=== PATIENT | male | born 1965 | race Caucasian/White ===

== ENCOUNTER 2016-11-18 08:49 | Emergency (ER) | payer OTHER ==
[2016-11-18 09:00] VITALS: BP 121/82
--- NOTE | 2016-11-18 10:30 | UC ---
I, Oh,Babita, scribed for Joseph Smith MD on 11/18/16 at 0935 . Upper Extremity HPI - HPI Summary HPI Summary: This 51 y/o male presents to [facility] for acute on chronic numbness/pain of RUE digit #2,3,4 radiating to RUE shoulder since today. Pt states that he has hadintermittent episodes of numbness since 3-4 months ago. Right hand dominant. Pt reports that he feel scared of possibly dropping things when using his right hand. Pain is worse at night. Negative slurred speech. PMHx does includes T12- L1 compression fx and bilat shoulder injury s/p surgery a year ago, but does not include chronic neck pain or back surgery. Pt is currently on celebrex, pantoprazole, ability in morning and daily APAP at night for pain control. Primary care involves Dr. Jordan. - History of Current Complaint Chief Complaint: UCUpperExtremity Stated Complaint: ARM NUMB Time Seen by Provider: 11/18/16 09:10 Hx Obtained From: Patient, Medical Records Onset/Duration: Lasting Weeks, Still Present Pain Intensity: 3 Pain Scale Used: 0-10 Numeric Location Of Pain: Is Discrete @ - RUE hand Aggravating Factor(s): Nothing Alleviating Factor(s): Nothing Associated Signs And Symptoms: Positive: Numbness/Tingling - RUE fingers radiating to RUE shoulder - Allergies/Home Medications Allergies/Adverse Reactions: Allergies Allergy/AdvReac Type Severity Reaction Status Date / Time Penicillins Allergy Severe Anaphylatic Verified 11/18/16 08:52 Shock EGGS Allergy STOMACH Uncoded 11/18/16 08:52 ACHE Home Medications: Home Medications Mometasone/Formoter 100/5 MDI* [Dulera 100/5 MDI*] 2 puff INH BID 11/18/16 [ History Confirmed 11/18/16] PMH/Surg Hx/FS Hx/Imm Hx - Additional Past Medical History Additional PMH: BIlat shoulder injury s/p surgery a year ago. Compression fx at T12-L1 - Surgical History Surgical History: Yes Surgery Procedure, Year, and Place: 07/2014 left shoulder; 12/2013 rt shoulder; spleen removed in 1977; - Family History Known Family History: Positive: Respiratory Disease - COPD - Social History Alcohol Use: None Alcohol Amount: last 2009 Substance Use Type: None Smoking Status (MU): Former Smoker Type: Cigarettes Amount Used/How Often: 1 1/2 PPD X 20 YEARS Length of Time of Smoking/Using Tobacco: 25 YEARS Have You Smoked in the Last Year: No When Did the Patient Quit Smoking/Using Tobacco: 2012 - Immunization History Most Recent Influenza Vaccination: NONE Most Recent Tetanus Shot: UNKNOWN Most Recent Pneumonia Vaccination: NONE Review of Systems Constitutional: Negative Skin: Negative Eyes: Negative ENT: Negative Respiratory: Negative Cardiovascular: Negative Gastrointestinal: Negative Genitourinary: Negative Motor: Negative Neurovascular: Negative Musculoskeletal: Other: - RUE pain Neurological: Numbness - RUE numbness from digit #2,3,4 to RUE shoulder Psychological: Negative All Other Systems Reviewed And Are Negative: Yes Physical Exam Triage Information Reviewed: Yes Vital Signs: Initial Vital Signs Temp 97.8 F 11/18/16 08:55 Pulse 101 11/18/16 08:55 Resp 16 11/18/16 08:55 BP 121/82 11/18/16 08:55 Pulse Ox 97 11/18/16 08:55 Vital Signs Reviewed: Yes - Additional Comments The patient is well-nourished in no acute distress and in no acute pain. The skin is warm and dry and skin color reflects adequate perfusion. HEENT: The head is normocephalic and atraumatic. The pupils are equal and reactive. The conjunctivae are clear and without drainage. Nares are patent and without drainage. Mouth reveals moist mucous membranes and the throat is without erythema and exudate. The external ears are intact. The ear canals are patent and without drainage. The tympanic membranes are intact. Neck is supple with full range of motion and non-tender. There are no carotid bruits. There is no neck vein distension. Respiratory: Chest is non-tender. Lungs are clear to auscultation and breath sounds are symmetrical and equal. Cardiovascular: Hear is regular rate and rhythm. There is no murmur or rub auscultated. There is no peripheral edema and pulses are symmetrical and equal. Intact RUE radial pulse. Abdomen: The abdomen is soft and non-tender. There are normal bowel sounds heard in all four quadrants and there is no organomegaly palpated. Musculoskeletal: There is no back pain noted. Extremities are non-tender with full range of motion. There is good capillary refill at RUE digits. There is no peripheral edema or calf tenderness elicited. Neurological: Patient is alert and oriented to person, place and time. The patient has symmetrical motor strength in all four extremities. Cranial nerves II-XIII are grossly intact. Negative facial droops. Psychiatric: The patient has an appropriate affect and does not exhibit any anxiety or depression. Upper Extremity Course/Dx - Course Course Of Treatment: Home med list reviewed and confirmed. Vital signs is reviewed and noted with BP of 121/82. THis 51 y/o male presents with chronic RUE hand numbness since 3-4 months ago. Pt denies any other numbness or any neurological deficits. Possibility of Carpel tunnel syndrome and nerve entrapment is discussed with pt, and he is recommended for outpatient MRI. Pt was referred to Dr. Medrano instead of Dr. Sapp, who is orthopaedist ordnance truck installation supervisor because he doesn't do hands. - Differential Dx/Diagnosis Differential Diagnosis/HQI/PQRI: Other - carpal tunnel, cervical neuropathy, median nerve entrapment Provider Diagnoses: 1) median nerve entrapment 3) Carpal Tunnel Syndrome 2) right hand numbness Discharge - Discharge Plan Condition: Stable Disposition: HOME Prescriptions: Gabapentin CAP(*) [Neurontin 300 CAP(*)] 300 mg PO TID #90 cap Patient Education Materials: Paresthesia (ED), Peripheral Neuropathy (ED) Referrals: Alycia Medrano MD [Medical Doctor] - 2 Days Leslie Jordan MD [Primary Care Provider] - 2 Days Additional Instructions: Outpatient MRI is recommended. The documentation as recorded by the Richard gamino Soohyun accurately reflects the service I personally performed and the decisions made by , Joseph Smith MD.
== END 2016-11-18 09:55 | disposition home or self-care (01) ==
LOC: UCEAST 08:49
DX: G56.01 Carpal tunnel syndrome, right upper limb (principal); G56.00 Carpal tunnel syndrome, unspecified upper limb; R20.0 Anesthesia of skin; Z87.891 Personal history of nicotine dependence; Z88.0 Allergy status to penicillin
CPT/HCPCS: 99213; G0463

== ENCOUNTER 2017-01-19 14:37 | Emergency (ER) | payer OTHER ==
[2017-01-19 14:58] VITALS: BP 134/92
--- NOTE | 2017-01-19 15:37 | RAD ---
INDICATION: Right wrist foreign body COMPARISON: None TECHNIQUE: AP, lateral, and oblique views were obtained. FINDINGS: There is no acute bony change. There is a metallic density foreign body 4 mm below the skin surface along the radial aspect of wrist at the level of the proximal carpal row. This is proximal to the entrance wound is marked by the cogeneration technician. IMPRESSION: FOREIGN BODY
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
== END 2017-01-19 16:16 | disposition home or self-care (01) ==
LOC: UCEAST 14:37
DX: S60.851A Superficial foreign body of right wrist, initial encounter (principal); L03.113 Cellulitis of right upper limb; X58.XXXA Exposure to other specified factors, initial encounter; Y92.9 Unspecified place or not applicable; Z87.891 Personal history of nicotine dependence; F32.9 Major depressive disorder, single episode, unspecified; J44.9 Chronic obstructive pulmonary disease, unspecified; Z88.0 Allergy status to penicillin
CPT/HCPCS: 99212; G0463

== ENCOUNTER 2017-01-24 08:23 | Day surgery (SDC) | payer OTHER ==
[~2017-01-24 08:23] MED LIST: Buffered Lidocaine 0.9% SYRIN* 5 ML/SYR SYRINGE INTRADERM ONE
[2017-01-24] MEDS ORDERED: Clindamycin 900 MG IVPREMIX(* 900 MG/50 ML SDV IV ONE (08:35)
[2017-01-24] MEDS ORDERED: Midazolam* 1 MG/ML 2 ML VIAL (2 MG) ONE (09:27)
[2017-01-24] MEDS ORDERED: fentaNYL* 50 MCG/ML 2 ML VIAL (100 MCG VIAL) ONE (09:27)
[2017-01-24] MEDS ORDERED: Lidocaine 1% INJ* 10 MG/ML 30 ML SDV ONE (09:48)
[2017-01-24] MEDS ORDERED: Lidocaine 2% PF * 5 ML VIAL ONE (10:04)
[2017-01-24] MEDS ORDERED: Propofol* 10 MG/ML 20 ML BTL IV PUSH ONE (10:04)
[2017-01-24] MEDS ORDERED: PROCHLORPERAZINE INJ 5 MG/ML 2 ML VIAL IV PRN (10:20)
[2017-01-24] MEDS ORDERED: Ondansetron INJ* 2 MG/ML VIAL IV PRN (10:20)
[2017-01-24] MEDS ORDERED: Acetaminophen TAB* 325 MG PO PRN (10:20)
[2017-01-24 11:04] VITALS: BP 135/100
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
== END 2017-01-24 11:13 | disposition home or self-care (01) ==
LOC: OREAST 08:23
PROVIDERS: ATTEND Orthopaedic Surgery
DX: S60.851A Superficial foreign body of right wrist, initial encounter (principal); W45.8XXA Other foreign body or object entering through skin, initial encounter; Y92.9 Unspecified place or not applicable; G47.33 Obstructive sleep apnea (adult) (pediatric); K21.9 Gastro-esophageal reflux disease without esophagitis; J45.909 Unspecified asthma, uncomplicated; E66.9 Obesity, unspecified; Z68.32 Body mass index [BMI] 32.0-32.9, adult; Z88.0 Allergy status to penicillin; Z87.891 Personal history of nicotine dependence
CPT/HCPCS: J2001; J2250; J2704; J3010

== ENCOUNTER 2017-09-18 07:50 | Emergency (ER) | payer OTHER ==
[2017-09-18 07:59] VITALS: BP 152/101
--- NOTE | 2017-09-18 12:15 | UC ---
Abraham Alston Angela, scribed for Dillan Wilkes MD on 09/18/17 at 0814 . UC General HPI - HPI Summary HPI Summary: This pt is a 52 y/o male presenting to [facility] c/o chronic pain for the past 2 days. Pt notes his pain is diffuse especially on his bilateral shoulders, back, and wrist. Pt states he has chronic pain secondary to arthritis. He usually takes Gabapentin and Celebrex for the pain but reports his pain has increased over the past 2 to 3 days. Denies chest pain, SOB, fever, chills. Pt describes his pain is worse than his usual arthritis pain. - History of Current Complaint Chief Complaint: UCGeneralIllness Stated Complaint: SHOULDER,BACK,WRIST PAIN Hx Obtained From: Patient Onset/Duration: Lasting Days, Still Present Timing: Constant Current Severity: Moderate Pain Intensity: 7 Pain Location at: bilateral shoulders, back, and wrist Aggravating: nothing Alleviating: nothing Associated Signs & Symptoms: Negative: Chest Pain, Fever, SOB - Allergy/Home Medications Allergies/Adverse Reactions: Allergies Allergy/AdvReac Type Severity Reaction Status Date / Time Penicillins Allergy anaph Verified 09/18/17 07:52 PMH/Surg Hx/FS Hx/Imm Hx - Additional Past Medical History Additional PMH: PMHx: arthritis Respiratory History: Asthma GI/ History: Gastroesophageal Reflux - Surgical History Surgical History: Yes Surgery Procedure, Year, and Place: 07/2014 left shoulder x2 ; 12/2013 rt shoulder ; spleen removed in 1977; back fx x 2 ,cx degen changes - Family History Known Family History: Positive: Respiratory Disease - COPD - Social History Alcohol Use: None Alcohol Amount: last 2009 Substance Use Type: None Smoking Status (MU): Former Smoker Type: Cigarettes Amount Used/How Often: 1 1/2 PPD X 20 YEARS Length of Time of Smoking/Using Tobacco: 25 YEARS Have You Smoked in the Last Year: No When Did the Patient Quit Smoking/Using Tobacco: 2012 - Immunization History Most Recent Influenza Vaccination: NONE Most Recent Tetanus Shot: less then 5 yrs Most Recent Pneumonia Vaccination: NONE Review of Systems Constitutional: Negative Skin: Negative Eyes: Negative ENT: Negative Respiratory: Negative Cardiovascular: Negative Gastrointestinal: Negative Genitourinary: Negative Motor: Negative Neurovascular: Negative Musculoskeletal: Arthralgia, Other: - bilateral shoulder pain, back pain, wrist pain Neurological: Negative Psychological: Negative All Other Systems Reviewed And Are Negative: Yes Physical Exam - Summary Physical Exam Summary: VITAL SIGNS: Reviewed. GENERAL: Patient is a well-developed and nourished male who is lying comfortable in the stretcher. Patient is not in any acute respiratory distress. HEAD AND FACE: Normocephalic EYES: PERRLA, EOMI x 2. EARS: Hearing grossly intact. MOUTH: Oropharynx within normal limits. NECK: Supple, trachea is midline, no adenopathy, no JVD, no carotid bruit. CHEST: Symmetric, no tenderness at palpation LUNGS: Clear to auscultation bilaterally. No wheezing or crackles. CVS: Regular rate and rhythm, S1 and S2 present, no murmurs or gallops appreciated. ABDOMEN: Soft, non-tender. Bowel sounds are normal. No abdominal abnormal pulsations. EXTREMITIES: no edema, no cyanosis or clubbing. Decreased ROM of right wrist secondary to pain, no swelling, no hematoma. He is neurovascular intact. Decreased ROM of both shoulders secondary to pain. No hematoma. No deformity. NEURO: Alert and oriented x 3. No acute neurological deficits. Speech is normal and follows commands. SKIN: Dry and warm Triage Information Reviewed: Yes Vital Signs: Initial Vital Signs Temp 98.2 F 09/18/17 07:53 Pulse 94 09/18/17 07:53 Resp 16 09/18/17 07:53 BP 152/101 09/18/17 07:53 Pulse Ox 100 09/18/17 07:53 Vital Signs Reviewed: Yes Course/Dx - Course Course Of Treatment: This pt is a 52 y/o male presenting to [facility] c/o chronic pain for the past 2 days. Pt notes his pain is localized on bilateral shoulders , back, and wrist. Pt states he has chronic pain secondary to arthritis. He usually takes Gabapentin and Celebrex for the pain but reports his pain has increased over the past 2 to 3 days. Denies chest pain, SOB, fever, chills. Pt describes his pain worse than his usual arthritis pain. Pt will be discharged to home with follow up from PCP. He will be given prescriptions for Flexeril and [place]. Pt was instructed to return to the urgent care or go to ER immediately if any of the symptoms return or worsens. Plan of care was discussed with the patient and pt understands and agrees. All questions were answered to patient satisfaction. There were no further complaints or concerns. Pt is hemodynamically stable, alert and oriented x3. The patient was found to have increased blood pressure in UC. The patient will follow up with PCP for better control of BP. - Differential Dx - Multi-Symptom Provider Diagnoses: Arthralgia Discharge - Sign-Out/Discharge Documenting (check all that apply): Discharge - discharge to home - Discharge Plan Condition: Stable Disposition: HOME Prescriptions: Cyclobenzaprine TAB* [Flexeril 10 MG TAB*] 10 mg PO TID PRN #12 tab PRN Reason: Pain HYDROcodone/ACETAMIN 5-325 MG* [[place] 5-325 TAB*] 1 tab PO Q6H PRN #12 tab MDD 4 PRN Reason: Pain Patient Education Materials: Arthralgia (ED), Shoulder Pain (ED) Referrals: Leslie Jordan MD [Primary Care Provider] - Additional Instructions: FOLLOW UP WITH YOUR PRIMARY CARE PROVIDER WITHIN ONE WEEK FOR HIGH BLOOD PRESSURE NOTED TODAY. RETURN TO URGENT CARE OR THE ED FOR ANY WORSENING OR NEW SYMPTOMS. The documentation as recorded by the Abraham gamino Angela accurately reflects the service I personally performed and the decisions made by , Dillan Wilkes MD.
== END 2017-09-18 08:25 | disposition home or self-care (01) ==
LOC: UCEAST 07:50
DX: M25.512 Pain in left shoulder (principal); M25.511 Pain in right shoulder; M25.531 Pain in right wrist; M54.9 Dorsalgia, unspecified; J45.909 Unspecified asthma, uncomplicated; K21.9 Gastro-esophageal reflux disease without esophagitis; Z88.0 Allergy status to penicillin; Z87.891 Personal history of nicotine dependence
CPT/HCPCS: 99212; G0463

== ENCOUNTER 2017-09-27 07:25 | Emergency (ER) | payer OTHER ==
[2017-09-27 07:39] VITALS: BP 94/69
--- NOTE | 2017-09-27 08:21 | UC ---
Back Pain HPI - HPI Summary HPI Summary: 52 year old male with back pain and wrist pain. pain /10. to see ortho 5/2. missed PCP appt and referred to Ortho pain worsened since running out of bruning. - History of Current Complaint Chief Complaint: UCUpperExtremity Stated Complaint: PAIN IN SHOULDERS AND WRIST Time Seen by Provider: 09/27/17 07:42 Hx Obtained From: Patient Onset/Duration: Gradual Onset Timing: Constant Severity Initially: Moderate Severity Currently: Severe Pain Intensity: 8 Back Pain: Is Diffuse Aggravating Factor(s): Movement Alleviating Factor(s): Nothing Related History: Similar Episode Dx As, Previous Back Injury - Allergies/Home Medications Allergies/Adverse Reactions: Allergies Allergy/AdvReac Type Severity Reaction Status Date / Time Penicillins Allergy anaph Verified 09/27/17 07:39 Home Medications: Home Medications ARIPiprazole [Abilify] 10 mg PO DAILY 09/27/17 [History Confirmed 09/27/17] Acetaminophen [APAP] 650 mg PO Q6H PRN 09/27/17 [History Confirmed 09/27/17] PMH/Surg Hx/FS Hx/Imm Hx Previously Healthy: Yes Psychological History: Anxiety, Depression - Surgical History Surgical History: Yes Surgery Procedure, Year, and Place: 07/2014 left shoulder x2 ; 12/2013 rt shoulder ; spleen removed in 1977; back fx x 2 ,cx degen changes. R wrist surgery - Family History Known Family History: Positive: None, Respiratory Disease - COPD - Social History Alcohol Use: None Alcohol Amount: last 2009 Substance Use Type: None Smoking Status (MU): Former Smoker Type: Cigarettes Amount Used/How Often: 1 1/2 PPD X 20 YEARS Length of Time of Smoking/Using Tobacco: 25 YEARS Have You Smoked in the Last Year: No When Did the Patient Quit Smoking/Using Tobacco: 2012 - Immunization History Most Recent Influenza Vaccination: NONE Most Recent Tetanus Shot: less then 5 yrs Most Recent Pneumonia Vaccination: NONE Review of Systems Musculoskeletal: Arthralgia, Decreased ROM Is Patient Immunocompromised?: No All Other Systems Reviewed And Are Negative: Yes Physical Exam Triage Information Reviewed: Yes Appearance: Well-Appearing, Pain Distress - mild Vital Signs: Initial Vital Signs Temp 98.4 F 09/27/17 07:34 Pulse 90 09/27/17 07:34 Resp 16 09/27/17 07:34 BP 94/69 09/27/17 07:34 Pulse Ox 98 09/27/17 07:34 Vital Signs Reviewed: Yes Eye Exam: Normal ENT Exam: Normal Neck exam: Normal Respiratory Exam: Normal Cardiovascular Exam: Normal Musculoskeletal: Positive: Strength Intact, ROM Limited @ - pain with movement right wrist and tenderness to palpation scapulothoracic area b/l . no step off. strength u/e 5/5 . wrist otherwise WNL. cap refill < 3 sec peripheral pulses brisk Neurological Exam: Normal Psychological Exam: Normal Skin Exam: Normal Back Pain Course/Dx - Course Course Of Treatment: bridge to ortho . i stop checked - Differential Dx/Diagnosis Differential Diagnosis/HQI/PQRI: Strain, Sprain Provider Diagnoses: back pain and right wrist pain Discharge - Sign-Out/Discharge Documenting (check all that apply): Discharge/Admit/Transfer - Discharge Plan Condition: Good Disposition: HOME Prescriptions: HYDROcodone/ACETAMIN 5-325 MG* [[place] 5-325 TAB*] 1 tab PO Q6H PRN #12 tab MDD 4 PRN Reason: Pain Patient Education Materials: Back Pain (ED) Referrals: Leslie Jordan MD [Primary Care Provider] - 2 Days Additional Instructions: Please keep your appointment with you orthopedic doctor next week. - Billing Disposition and Condition Condition: GOOD Disposition: HOME
== END 2017-09-27 08:15 | disposition home or self-care (01) ==
LOC: UCEAST 07:25
DX: M54.9 Dorsalgia, unspecified (principal); M25.531 Pain in right wrist; F41.9 Anxiety disorder, unspecified; F32.9 Major depressive disorder, single episode, unspecified; Z88.0 Allergy status to penicillin; Z87.891 Personal history of nicotine dependence
CPT/HCPCS: 99212; G0463

== ENCOUNTER 2018-01-29 15:16 | Emergency (ER) | payer OTHER ==
[2018-01-29 15:26] VITALS: BP 128/87
--- NOTE | 2018-01-29 15:34 | UC ---
Throat Pain/Nasal Rogelio HPI - HPI Summary HPI Summary: sore throat for a couple of days , also has body aches and subjective fever, patient feels like this began a couple of days ago when he choked on a fidel potato chip - History of Current Complaint Chief Complaint: UCRespiratory Stated Complaint: THROAT PAIN Time Seen by Provider: 01/29/18 15:31 Hx Obtained From: Patient Onset/Duration: Sudden Onset, Lasting Days - 3, Still Present Pain Intensity: 7 Pain Scale Used: 0-10 Numeric Cough: None Associated Signs & Symptoms: Positive: Negative - Allergies/Home Medications Allergies/Adverse Reactions: Allergies Allergy/AdvReac Type Severity Reaction Status Date / Time Penicillins Allergy anaph Verified 01/29/18 15:25 PMH/Surg Hx/FS Hx/Imm Hx Previously Healthy: No - chronic pain GI/ History: Gastroesophageal Reflux - Surgical History Surgical History: Yes Surgery Procedure, Year, and Place: 07/2014 left shoulder x2 ; 12/2013 rt shoulder ; spleen removed in 1977; back fx x 2 ,cx degen changes. R wrist surgery - Family History Known Family History: Positive: None, Respiratory Disease - COPD - Social History Occupation: Unemployed Lives: Alone Alcohol Use: None Alcohol Amount: last 2009 Substance Use Type: None Smoking Status (MU): Former Smoker Type: Cigarettes Amount Used/How Often: 1 1/2 PPD X 20 YEARS Length of Time of Smoking/Using Tobacco: 25 YEARS Have You Smoked in the Last Year: No When Did the Patient Quit Smoking/Using Tobacco: 2012 - Immunization History Most Recent Influenza Vaccination: NONE Most Recent Tetanus Shot: less then 5 yrs Most Recent Pneumonia Vaccination: NONE Review of Systems Constitutional: Chills Skin: Negative Eyes: Negative ENT: Sore Throat Respiratory: Cough Cardiovascular: Negative Gastrointestinal: Negative Genitourinary: Negative Motor: Negative Neurovascular: Negative Musculoskeletal: Negative Neurological: Negative Psychological: Negative Is Patient Immunocompromised?: No All Other Systems Reviewed And Are Negative: Yes Physical Exam Triage Information Reviewed: Yes Appearance: Well-Nourished, Ill-Appearing - appears chroniccly older than stated age, Pain Distress - mild Vital Signs: Initial Vital Signs Temp 99.5 F 01/29/18 15:18 Pulse 87 01/29/18 15:18 Resp 22 01/29/18 15:18 BP 128/87 01/29/18 15:18 Pulse Ox 96 01/29/18 15:18 Vital Signs Reviewed: Yes Eye Exam: Normal Eyes: Positive: Conjunctiva Clear ENT Exam: Normal ENT: Positive: Normal ENT inspection, Hearing grossly normal, Pharynx normal, Uvula midline. Negative: Nasal congestion, Tonsillar swelling, Tonsillar exudate, Trismus, Muffled voice, Hoarse voice, Dental tenderness, Sinus tenderness Neck exam: Normal Neck: Positive: Supple, Nontender Respiratory Exam: Normal Respiratory: Positive: Chest non-tender, Lungs clear, Normal breath sounds, No respiratory distress, No accessory muscle use Cardiovascular Exam: Normal Cardiovascular: Positive: RRR, No Murmur, Pulses Normal, Brisk Capillary Refill Musculoskeletal Exam: Normal Musculoskeletal: Positive: Strength Intact, ROM Intact, No Edema Neurological Exam: Normal Neurological: Positive: Alert, Muscle Tone Normal Psychological Exam: Normal Skin Exam: Normal Diagnostics - Radiology No standard instances Xray Interpretation: No Acute Changes - Patient Name: RENE QUIÑONES Medical Record#: [id number] Ordering Physician: Yanet Ling [employer] Acct.#: [id number] : 1965 Age: 52 Sex: M Location: [facility] Exam Date: 01/29/18 1608 ADM Status: REG ER Order Information : CHEST PA & LAT 2 VWS Accession Number: [id number] CPT: 83392 INDICATION: Chest pain COMPARISON: September 24, 2015 TECHNIQUE: PA and lateral dual-energy views were obtained. FINDINGS: Bones/Soft Tissues: There are no acute bony findings. There is left humeral arthroplasty Cardiomediastinal: The cardiomediastinal silhouette is normal. Lungs: There are no focal infiltrates. There are chronic interstitial changes. There is minor lingular scarring or atelectasis. Pleura: There are no pleural effusions. Other: None IMPRESSION: NO ACTIVE DISEASE. <Electronically signed by Josse Pearl MD in OV> 7 Dictated By: Josse Pearl MD Dictated Date/Time: 01/29/18 162 Transcribed Date/Time: 01/29/18 1625 Copy to: CC:Yanet Ling [employer]; Leslie Romero MD; Josse Cueva MD Imaging - [facility] Imaging - [facility] Imaging - [facility] [id number] [place] [id number] [place] [id number] ph ([phone] ph ([phone]) ph ([phone]) This report is only to be considered final once signed by the Provider(s) as displayed in the "< Electronically Signed by >" field (s). Absence of a signature indicates the report is in a draft status and still needs to be finalized. In the event this document was created by someone other than the signing Provider, the individual initiating the document will be listed in the "Entered by:" or "Dictated by:" [email or web address]. 1 of 1 Radiology Interpretation Completed By: ED Physician, Radiologist - EKG Cardiac Rate: Tachycardia Cardiac Rhythm: Sinus: Normal Ectopy: None ST Segment: Normal EKG Comparison: No Significant Change Throat Pain/Nasal Course/Dx - Course Assessment/Plan: will transfer patient to [facility] with SOB/Chills concider sepsis--patient agreeable to go by ambulance as he feels he is to ill and fatigued to drive - Differential Dx/Diagnosis Provider Diagnoses: fatigue, SOB Discharge - Sign-Out/Discharge Documenting (check all that apply): Patient Departure All imaging exams completed and their final reports reviewed: Yes - Discharge Plan Condition: Fair Disposition: TRANS HIGHER LVL OF CARE FAC Referrals: Leslie Jordan MD [Primary Care Provider] - - Billing Disposition and Condition Condition: FAIR Disposition: Trans Higher Lvl of Care Fac
[2018-01-29] MEDS ORDERED: Al Hydrox/Mg Hydrox/Simet LIQ* 30 ML UDC PO ONE (15:49)
[2018-01-29] MEDS ORDERED: Lidocaine 2% VISCOUS* 15 ML UDC PO ONE (15:49)
--- NOTE | 2018-01-29 16:30 | RAD ---
INDICATION: Chest pain COMPARISON: September 24, 2015 TECHNIQUE: PA and lateral dual-energy views were obtained. FINDINGS: Bones/Soft Tissues: There are no acute bony findings. There is left humeral arthroplasty Cardiomediastinal: The cardiomediastinal silhouette is normal. Lungs: There are no focal infiltrates. There are chronic interstitial changes. There is minor lingular scarring or atelectasis. Pleura: There are no pleural effusions. Other: None IMPRESSION: NO ACTIVE DISEASE.
== END 2018-01-29 17:10 | disposition short-term general hospital (02) ==
LOC: UCEAST 15:16
DX: R06.02 Shortness of breath (principal); R53.83 Other fatigue; J02.9 Acute pharyngitis, unspecified; R50.9 Fever, unspecified; R52 Pain, unspecified; Z87.891 Personal history of nicotine dependence; Z88.0 Allergy status to penicillin
CPT/HCPCS: 71046; 87651; 93005; 99213; A9270-GY; G0463

== ENCOUNTER 2018-01-29 17:28 | Observation (INO) | payer OTHER ==
[2018-01-29] MEDS ORDERED: NS 0.9% 1000 ML*IV.FLUID IV ONE (17:50)
[2018-01-29] MEDS ORDERED: Albuterol/Ipratropium NEB.SOL* Albuterol 2.5 MG/Ipratropium 0.5 MG 3 ML INH ONE (17:51)
[2018-01-29] MEDS ORDERED: Ciprofloxacin 400MG IVPREMIX(* 400 MG/200 ML BAG IVPB ONE (18:11)
[2018-01-29] MEDS ORDERED: Vancomycin(*) 1,500 MG in NS 0.9% 250 ML* 250 ML IVPB ONE (18:11)
[2018-01-29] MEDS ORDERED: metroNIDAZOLE IV 500 MG/100ML* 500 MG/100 ML BAG IVPB ONE (18:11)
[2018-01-29 18:37] LABS: ABS Basophils 0.1 10^3/ul (0-0.2); ABS Eosinophils 0.1 10^3/ul (0-0.6); ABS Lymphocytes 1.4 10^3/ul (1.0-4.8); ABS Monocytes 1.5 10^3/ul (0-0.8); ABS Neutrophils 12.5 10^3/ul (1.5-7.7); ABS Nucleated RBC 0 10^3/ul; Eosinophil % 0.6 % (0-6); Hematocrit 45 % (42-52); Hemoglobin 15.3 g/dl (14.0-18.0); Lymphocyte % 9.2 % (25-47); Mean Corpuscular HGB Conc 34 g/dl (31-36); Mean Corpuscular Hemoglobin 29 pg (27-31); Mean Corpuscular Volume 86 fL (80-94); Nucleated Red Blood Cells % 0.1; Platelet Count 219 10^3/ul (150-450); Red Blood Count 5.27 10^6/ul (4.00-5.40); Red Cell Distribution Width 14 % (10.5-15); White Blood Count 15.6 10^3/ul (3.5-10.8)
--- NOTE | 2018-01-29 18:38 | ED ---
Respiratory - History of Current Complaint Chief Complaint: EDFever Stated Complaint: THROAT PAIN Time Seen by Provider: 01/29/18 17:37 Pain Intensity: 8 - Allergy/Home Medications Allergies/Adverse Reactions: Allergies Allergy/AdvReac Type Severity Reaction Status Date / Time Penicillins Allergy anaph Verified 01/29/18 18:34 PMH/Surg Hx/FS Hx/Imm Hx Endocrine/Hematology History: Reports: Hx Anemia - A CHILD, spleen removed 1977 Denies: Hx Diabetes, Hx Systemic Lupus Erythematosus, Hx Thyroid Disease Cardiovascular History: Denies: Hx Congestive Heart Failure, Hx Hypertension, Hx Pacemaker/ICD, Other Cardiovascular Problems/Disorders Respiratory History: Reports: Hx Asthma, Hx Sleep Apnea, Other Respiratory Problems/Disorders - DR FOUND SPOT ON LUNG 2 YRS AGO, unsure what Denies: Hx Chronic Obstructive Pulmonary Disease (COPD) GI History: Reports: Hx Gastroesophageal Reflux Disease, Hx Hiatal Hernia - STATES POSSIBLY Denies: Other GI Disorders History: Reports: Other Problems/Disorders - BLADDER INFECTION 10 YEARS AGO Denies: Hx Dialysis, Hx Renal Disease Musculoskeletal History: Reports: Hx Arthritis - back and shoulders, knees, wrists, Other Musculoskeletal History - RIGHT SHOULDER Denies: Hx Rheumatoid Arthritis Sensory History: Denies: Hx Contacts or Glasses, Hx Hearing Aid Opthamlomology History: Denies: Hx Contacts or Glasses Neurological History: Reports: Hx Nerve Disease - r/t carpal tunnel Psychiatric History: Reports: Hx Anxiety - on meds, Hx Depression - on meds Denies: Hx Panic Disorder - Cancer History Hx Chemotherapy: No - Surgical History Surgery Procedure, Year, and Place: 07/2014 left shoulder x2 ; 12/2013 rt shoulder ; spleen removed in 1977; back fx x 2 ,cx degen changes. R wrist surgery Hx Anesthesia Reactions: No - Immunization History Immunizations Up to Date: Yes Infectious Disease History: No Infectious Disease History: Denies: Hx Clostridium Difficile, Hx Hepatitis, Hx Human Immunodeficiency Virus (HIV), Hx of Known/Suspected MRSA, Hx Shingles, Hx Tuberculosis, Hx Known/ Suspected VRE, Hx Known/Suspected VRSA, History Other Infectious Disease, Traveled Outside the [place] in Last 30 Days - Family History Known Family History: Positive: None, Respiratory Disease - COPD - Social History Alcohol Use: None Alcohol Amount: last 2009 Substance Use Type: Reports: None Hx Tobacco Use: No Smoking Status (MU): Former Smoker Type: Cigarettes Amount Used/How Often: 1 1/2 PPD X 20 YEARS Length of Time of Smoking/Using Tobacco: 25 YEARS Have You Smoked in the Last Year: No Physical Exam Vital Signs On Initial Exam: Initial Vitals Temp Pulse Resp BP Pulse Ox 100.4 F 104 20 129/94 97 01/29/18 17:45 01/29/18 17:45 01/29/18 17:45 01/29/18 17:45 01/29/18 17:45 Diagnostics - Vital Signs Vital Signs Temp Pulse Resp BP Pulse Ox 01/29/18 18:11 98 01/29/18 17:45 100.4 F 104 20 129/94 97 - Laboratory Lab Results: Lab Results 01/29/18 Range/Units 18:25 WBC 15.6 H (3.5-10.8) 10^3/ul RBC 5.27 (4.00-5.40) 10^6/ul Hgb 15.3 (14.0-18.0) g/dl Hct 45 (42-52) % MCV 86 (80-94) fL MCH 29 (27-31) pg MCHC 34 (31-36) g/dl RDW 14 (10.5-15) % Plt Count 219 (150-450) 10^3/ul MPV 8.0 (7.4-10.4) um3 Neut % (Auto) 79.9 (38-83) % Lymph % (Auto) 9.2 L (25-47) % [place] % (Auto) 9.9 H (0-7) % Eos % (Auto) 0.6 (0-6) % Baso % (Auto) 0.4 (0-2) % Absolute Neuts (auto) 12.5 H (1.5-7.7) 10^3/ul Absolute Lymphs (auto) 1.4 (1.0-4.8) 10^3/ul Absolute Monos (auto) 1.5 H (0-0.8) 10^3/ul Absolute Eos (auto) 0.1 (0-0.6) 10^3/ul Absolute Basos (auto) 0.1 (0-0.2) 10^3/ul Absolute Nucleated RBC 0 10^3/ul Nucleated RBC % 0.1 Result Diagrams: 01/29/18 18:25 Lab Statement: Any lab studies that have been ordered have been reviewed, and results considered in the medical decision making process. Discharge - Discharge Plan Referrals: Leslie Jordan MD [Primary Care Provider] -
[2018-01-29] MEDS ORDERED: Acetaminophen TAB* 325 MG PO ONE (18:39)
--- NOTE | 2018-01-29 18:41 | ED ---
Complex/Multi-Sys Presentation - HPI Summary HPI Summary: Patient is a 52-year-old male who presents emergency department for sore throat , cough, shortness of breath and lower abdominal pain. He states he's had a productive cough over the last several days as well as a sore throat. He notes exacerbation of chronic low back pain as well as diarrhea and lower abdominal pain over the last several days. He admits to shortness of breath, denies chest pain. Also notes fever at home. Symptoms are moderate in severity. Movement makes symptoms worse. Nothing makes symptoms better. - History Of Current Complaint Chief Complaint: EDFever Time Seen by Provider: 01/29/18 17:37 Hx Obtained From: Patient - Allergies/Home Medications Allergies/Adverse Reactions: Allergies Allergy/AdvReac Type Severity Reaction Status Date / Time Penicillins Allergy anaph Verified 01/29/18 18:34 PMH/Surg Hx/FS Hx/Imm Hx Previously Healthy: Yes Endocrine/Hematology History: Reports: Hx Anemia - A CHILD, spleen removed 1977 Denies: Hx Diabetes, Hx Systemic Lupus Erythematosus, Hx Thyroid Disease Cardiovascular History: Denies: Hx Congestive Heart Failure, Hx Hypertension, Hx Pacemaker/ICD, Other Cardiovascular Problems/Disorders Respiratory History: Reports: Hx Asthma, Hx Sleep Apnea, Other Respiratory Problems/Disorders - FOUND SPOT ON LUNG 2 YRS AGO, unsure what Denies: Hx Chronic Obstructive Pulmonary Disease (COPD) GI History: Reports: Hx Gastroesophageal Reflux Disease, Hx Hiatal Hernia - STATES POSSIBLY Denies: Other GI Disorders History: Reports: Other Problems/Disorders - BLADDER INFECTION 10 YEARS AGO Denies: Hx Dialysis, Hx Renal Disease Musculoskeletal History: Reports: Hx Arthritis - back and shoulders, knees, wrists, Other Musculoskeletal History - RIGHT SHOULDER Denies: Hx Rheumatoid Arthritis Sensory History: Denies: Hx Contacts or Glasses, Hx Hearing Aid Opthamlomology History: Denies: Hx Contacts or Glasses Neurological History: Reports: Hx Nerve Disease - r/t carpal tunnel Psychiatric History: Reports: Hx Anxiety - on meds, Hx Depression - on meds Denies: Hx Panic Disorder - Cancer History Hx Chemotherapy: No - Surgical History Surgery Procedure, Year, and Place: 07/2014 left shoulder x2 ; 12/2013 rt shoulder ; spleen removed in 1977; back fx x 2 ,cx degen changes. R wrist surgery Hx Anesthesia Reactions: No - Immunization History Immunizations Up to Date: Yes Infectious Disease History: No Infectious Disease History: Denies: Hx Clostridium Difficile, Hx Hepatitis, Hx Human Immunodeficiency Virus (HIV), Hx of Known/Suspected MRSA, Hx Shingles, Hx Tuberculosis, Hx Known/ Suspected VRE, Hx Known/Suspected VRSA, History Other Infectious Disease, Traveled Outside the [place] in Last 30 Days - Family History Known Family History: Positive: None, Respiratory Disease - COPD - Social History Occupation: Unemployed Lives: Alone Alcohol Use: None Alcohol Amount: last 2009 Substance Use Type: Reports: None Hx Tobacco Use: No Smoking Status (MU): Former Smoker Type: Cigarettes Amount Used/How Often: 1 1/2 PPD X 20 YEARS Length of Time of Smoking/Using Tobacco: 25 YEARS Have You Smoked in the Last Year: No Review of Systems Positive: Fever, Chills Eyes: Negative Positive: Sore Throat Cardiovascular: Negative Negative: Palpitations, Chest Pain Positive: Shortness Of Breath, Cough Positive: Abdominal Pain, Diarrhea. Negative: Vomiting, Nausea Genitourinary: Negative Musculoskeletal: Negative Neurological: Negative All Other Systems Reviewed And Are Negative: Yes Physical Exam Triage Information Reviewed: Yes Vital Signs On Initial Exam: Initial Vitals Temp Pulse Resp BP Pulse Ox 100.4 F 104 20 129/94 97 01/29/18 17:45 01/29/18 17:45 01/29/18 17:45 01/29/18 17:45 01/29/18 17:45 Vital Signs Reviewed: Yes Appearance: Positive: Ill-Appearing - Pt. lying in bed, appears ill. C/O low back pain. Skin: Positive: Warm, Dry Head/Face: Positive: Normal Head/Face Inspection Eyes: Positive: Normal, EOMI ENT: Positive: Pharyngeal erythema. Negative: Tonsillar swelling, Tonsillar exudate Neck: Positive: Supple, Nontender, No Lymphadenopathy Respiratory/Lung Sounds: Positive: Other - Diffuse expiratory wheeze throughout. No accessory muscle use, stridor or retractions. Cardiovascular: Positive: Normal, RRR Abdomen Description: Positive: Other: - Significant tenderness on palpation to the right lower quadrant. Positive guarding. No rebound tenderness or rigidity. Neurological: Positive: Normal, CN Intact II-III Psychiatric: Positive: Affect/Mood Appropriate Diagnostics - Vital Signs Vital Signs Temp Pulse Resp BP Pulse Ox 01/29/18 18:11 98 01/29/18 17:45 100.4 F 104 20 129/94 97 - Laboratory Lab Results: Lab Results 01/29/18 Range/Units 18:25 WBC 15.6 H (3.5-10.8) 10^3/ul RBC 5.27 (4.00-5.40) 10^6/ul Hgb 15.3 (14.0-18.0) g/dl Hct 45 (42-52) % MCV 86 (80-94) fL MCH 29 (27-31) pg MCHC 34 (31-36) g/dl RDW 14 (10.5-15) % Plt Count 219 (150-450) 10^3/ul MPV 8.0 (7.4-10.4) um3 Neut % (Auto) 79.9 (38-83) % Lymph % (Auto) 9.2 L (25-47) % [place] % (Auto) 9.9 H (0-7) % Eos % (Auto) 0.6 (0-6) % Baso % (Auto) 0.4 (0-2) % Absolute Neuts (auto) 12.5 H (1.5-7.7) 10^3/ul Absolute Lymphs (auto) 1.4 (1.0-4.8) 10^3/ul Absolute Monos (auto) 1.5 H (0-0.8) 10^3/ul Absolute Eos (auto) 0.1 (0-0.6) 10^3/ul Absolute Basos (auto) 0.1 (0-0.2) 10^3/ul Absolute Nucleated RBC 0 10^3/ul Nucleated RBC % 0.1 Result Diagrams: 01/29/18 18:25 01/29/18 19:46 Lab Statement: Any lab studies that have been ordered have been reviewed, and results considered in the medical decision making process. Complex Multi-Symp Course/Dx Course Of Treatment: Patient presenting for cough, shortness of breath for lower abdominal pain. He is febrile at 100.4F, tachycardic 104 bpm, oxygen saturation 96% room air. Concerned for early sepsis. Sepsis protocol was ordered. Patient has severe allergy and anaphylaxis to penicillins. Case discussed with Dr. Herrera and he recommends Cipro, Flagyl and vancomycin. Patient had a chest x-ray at urgent care just prior to arrival which was negative for infiltrate or acute changes, reading per radiology. ECG done at 1754 shows sinus tachycardia of 100bpm, normal axis, no ST elevation or depression. We'll obtain CT scan of abdomen and pelvis with contrast given complaints of lower abdominal pain. Patient started on a DuoNeb treatment and fluids. CT abd/pelvis shows Left hepatic lesion, otherwise no acute findings, reading per radiology. CBC shows leukocytosis of 15.8. Mild increase in creatinine of 1.28, CRP elevated 88. Reexamination patient states he is feeling a bit better but is still complaining of sore throat, shortness of breath and lower abdominal pain. Given labs and VS, hospitalist was consulted, Dr. Yen. Pt. has been accepted to her service. - Diagnoses Provider Diagnoses: Acute bacterial bronchitis Discharge - Sign-Out/Discharge Documenting (check all that apply): Patient Departure - Discharge Plan Condition: Fair Disposition: ADMITTED TO [facility] - Billing Disposition and Condition Condition: FAIR Disposition: Admitted to [facility]
[2018-01-29 18:44] LABS: INR 1.02 (0.77-1.02)
[2018-01-29 18:55] LABS: EGFR Non-African American 58.6 (>60)
[2018-01-29] MEDS ORDERED: Iodixanol* (CONTRAST) 320 MG/ML 100 ML SDV IV ONE (19:21)
--- NOTE | 2018-01-29 21:02 | RAD ---
EXAM: CT Abdomen and Pelvis With Intravenous Contrast CLINICAL HISTORY: 52 years old, male; Pain; Abdominal pain; Additional info: Lower abd. Pain TECHNIQUE: Axial computed tomography images of the abdomen and pelvis with intravenous contrast. All CT scans at this facility use at least one of these dose optimization techniques: automated exposure control; mA and/or kV adjustment per patient size (includes targeted exams where dose is matched to clinical indication); or iterative reconstruction. Coronal and sagittal reformatted images were created and reviewed. CONTRAST: 130 mL of VISI 320 administered intravenously. COMPARISON: No relevant prior studies available. FINDINGS: Lung bases: Unremarkable. No mass. No consolidation. ABDOMEN: Liver: Multiple hepatic cysts, the largest of which measures approximately 15 mm. Low attenuation lesion in the left lobe of the liver measuring approximately 5 cm and incompletely characterized on this examination. Gallbladder and bile ducts: Unremarkable. No calcified stones. No ductal dilation. Pancreas: Unremarkable. No mass. No ductal dilation. Spleen: Posterior location of the spleen with multiple small accessory spleens. Adrenals: Unremarkable. No mass. Kidneys and ureters: Unremarkable. No solid mass. No hydronephrosis. Stomach and bowel: Colonic diverticula without CT findings of diverticulitis. No obstruction. PELVIS: Appendix: Appendicolith at the base of an otherwise normal-appearing appendix. Bladder: Unremarkable. No mass. Reproductive: Unremarkable as visualized. ABDOMEN and PELVIS: Intraperitoneal space: Unremarkable. No free air. No significant fluid collection. Bones/joints: No acute fracture. No dislocation. Soft tissues: Unremarkable. Vasculature: Atherosclerotic calcification. No abdominal aortic aneurysm. Lymph nodes: Unremarkable. No enlarged lymph nodes. IMPRESSION: 1. Left hepatic lesion incompletely characterized on this examination. Recommend dedicated liver MR or CT. 2. No other acute intra-abdominal findings.
[2018-01-29] MEDS ORDERED: methylPREDNISolone 125 MG* 2 ML VIAL IV ONE (21:58)
[2018-01-29 22:46] LABS: Urine Appearance Clear; Urine Blood 1+ (Negative); Urine Color Yellow; Urine Ketones Negative (Negative); Urine Protein Negative (Negative); Urine Red Blood Cell 1+(3-5/hpf) (Absent); Urine Specific Gravity > 1.060 (1.010-1.030); Urine Urobilinogen Negative (Negative); Urine White Blood Cell Trace(0-5/hpf) (Absent)
[2018-01-29] MEDS ORDERED: Acetaminophen TAB* 325 MG PO PRN (23:26)
[2018-01-29] MEDS ORDERED: Cyclobenzaprine TAB* 10 MG PO PRN (23:29)
--- NOTE | 2018-01-30 00:24 | RAD ---
EXAM: CT Neck Without Intravenous Contrast CLINICAL HISTORY: 52 years old, male; Signs and symptoms; Other: Fever; Additional info: RO tonsillar abscess TECHNIQUE: Axial computed tomography images of the neck without intravenous contrast. All CT scans at this facility use at least one of these dose optimization techniques: automated exposure control; mA and/or kV adjustment per patient size (includes targeted exams where dose is matched to clinical indication); or iterative reconstruction. Coronal and sagittal reformatted images were created and reviewed. COMPARISON: No relevant prior studies available. FINDINGS: Oropharynx: Unremarkable. No significant tonsillar enlargement. Hypopharynx: Unremarkable. Larynx: Unremarkable. Normal epiglottis. Trachea: Unremarkable. Retropharyngeal space: Unremarkable. Submandibular/parotid glands: Unremarkable. Glands are normal in size. Thyroid: Unremarkable. No enlarged or calcified nodules. Bones/joints: No acute fracture. Soft tissues: Unremarkable. Vasculature: Aberrant right subclavian artery. Atherosclerotic calcification. Lymph nodes: Unremarkable. No lymphadenopathy. Sinuses: Chronic sinus disease. Lung apices: Unremarkable as visualized. IMPRESSION: 1. No acute findings. Specifically, no peritonsillar abscess.
[2018-01-30] MEDS: NS 0.9% 1000 ML* 1,000 ML IV SCH ×3 (01:13→21:14)
[2018-01-30] MEDS: Albuterol/Ipratropium NEB.SOL* Albuterol 2.5 MG/Ipratropium 0.5 MG 3 ML INH SCH ×3 (01:14→19:45)
[2018-01-30] MEDS: Morphine INJ* 2 MG/ML 1 ML SYRINGE (TWO MG - NEW SYRINGE VERSION) IV PRN ×5 (01:18→22:35)
[2018-01-30] MEDS: methylPREDNISolone SOD 40 MG* 1 ML VIAL IV SCH ×2 (02:16→08:26)
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
[2018-01-30] MEDS: hydrOXYzine HCL TAB* 50 MG PO PRN ×2 (02:50→22:55)
[2018-01-30] MEDS: Omeprazole CAP* 20 MG PO SCH (05:40)
[2018-01-30] MEDS: Heparin VIAL(*) 5000 UNITS/ML VIAL (FIVE THOUSAND) SUBCUT SCH ×3 (05:40→22:44)
[2018-01-30 06:41] LABS: ABS Basophils 0 10^3/ul (0-0.2); ABS Eosinophils 0 10^3/ul (0-0.6); ABS Lymphocytes 0.6 10^3/ul (1.0-4.8); ABS Monocytes 0.2 10^3/ul (0-0.8); ABS Neutrophils 14.6 10^3/ul (1.5-7.7); ABS Nucleated RBC 0 10^3/ul; Eosinophil % 0.1 % (0-6); Hematocrit 42 % (42-52); Hemoglobin 14.5 g/dl (14.0-18.0); Lymphocyte % 3.8 % (25-47); Mean Corpuscular HGB Conc 34 g/dl (31-36); Mean Corpuscular Hemoglobin 30 pg (27-31); Mean Corpuscular Volume 86 fL (80-94); Mean Platelet Volume 7.6 um3 (7.4-10.4); Nucleated Red Blood Cells % 0; Platelet Count 194 10^3/ul (150-450); Red Cell Distribution Width 14 % (10.5-15); White Blood Count 15.4 10^3/ul (3.5-10.8)
[2018-01-30] MEDS: Mometasone/Formoter 100/5 MDI INH SCH ×2 (07:40→19:46)
[2018-01-30] MEDS: Docusate CAP* 100 MG PO SCH ×2 (08:20→22:41)
[2018-01-30] MEDS: ARIPiprazole TAB* 5 MG PO SCH (08:27)
[2018-01-30] MEDS: celeCOXIB CAP* 200 MG PO SCH ×2 (08:27→22:40)
[2018-01-30] MEDS: hydrOXYzine HCL TAB* 25 MG PO SCH (08:27)
[2018-01-30] MEDS: FLUoxetine CAP* 20 MG PO SCH (08:27)
--- NOTE | 2018-01-30 08:45 | PN ---
Subjective Date of Service: 01/30/18 Interval History: Patient reports he feels a little better today but continues to have generalized weakness, feels feverish and "terrible sore throat". He denies SOB but reports he feels "winded" when ambulating to the bathroom. He reports he has an appetite. Denies chills. No SEGUNDO. No CP. No N/V. Objective Active Medications: Acetaminophen (Tylenol Tab*) 650 mg PO Q4H PRN PRN Reason: FEVER/PAIN Acetaminophen/Codeine Phosphate (Tylenol/Codeine 30 Mg Tab*) 1 tab PO TID PRN PRN Reason: PAIN Albuterol/Ipratropium (Duoneb (Albuterol 2.5 Mg/Ipratropium 0.5 Mg)) 1 neb INH Q6H [facility] Last Admin: 01/30/18 07:40 Dose: 1 neb Aripiprazole (Abilify Tab*) 10 mg PO DAILY [facility] Last Admin: 01/30/18 08:27 Dose: 10 mg Celecoxib (Celebrex Cap*) 200 mg PO BID [facility] Last Admin: 01/30/18 08:27 Dose: 200 mg Cyclobenzaprine HCl (Flexeril Tab*) 10 mg PO BID PRN PRN Reason: SPASMS Docusate Sodium (Colace Cap*) 100 mg PO BID [facility] Last Admin: 01/30/18 08:20 Dose: Not Given Fluoxetine HCl (Prozac Cap*) 40 mg PO DAILY [facility] Last Admin: 01/30/18 08:27 Dose: 40 mg Gabapentin (Neurontin Cap(*)) 300 mg PO TID [facility] Gabapentin (Neurontin Cap(*)) 600 mg PO BEDTIME [facility] Heparin Sodium (Porcine) (Heparin Vial(*)) 5,000 units SUBCUT Q8HR [facility] Last Admin: 01/30/18 05:40 Dose: 5,000 units Hydroxyzine HCl (Atarax Tab*) 25 mg PO DAILY [facility] Last Admin: 01/30/18 08:27 Dose: 25 mg Hydroxyzine HCl (Atarax Tab*) 50 mg PO TID PRN PRN Reason: ANXIETY Last Admin: 01/30/18 02:50 Dose: 50 mg Sodium Chloride (Ns 0.9% 1000 Ml*) 1,000 mls @ 100 mls/hr IV PER RATE [facility] Last Admin: 01/30/18 01:13 Dose: 100 mls/hr Ceftriaxone Sodium 1 gm/ (Sodium Chloride) 50 mls @ 200 mls/hr IVPB Q24H [facility] Azithromycin 500 mg/ Sodium (Chloride) 250 mls @ 250 mls/hr IVPB Q24H [facility] Methylprednisolone Sodium Succinate (Solu-Medrol 40 Mg) 40 mg IV Q8H [facility] Last Admin: 01/30/18 08:26 Dose: 40 mg Mometasone Furoate/Formoterol Fumar (Dulera 100/5 Mdi*) 3 puff INH BID [facility] Last Admin: 01/30/18 07:40 Dose: 3 puff Morphine Sulfate (Morphine Inj ((Syringe))*) 1 mg IV Q4H PRN PRN Reason: PAIN - MILD Last Admin: 01/30/18 08:38 Dose: 1 mg Omeprazole (Prilosec Cap*) 20 mg PO DAILY@0600 [facility] Last Admin: 01/30/18 05:40 Dose: 20 mg Vital Signs - 8 hr 01/30/18 01/30/18 01/30/18 01:17 01:18 02:20 Temperature Pulse Rate 94 Respiratory 20 20 18 Rate Blood Pressure (mmHg) O2 Sat by Pulse 97 Oximetry 01/30/18 01/30/18 01/30/18 04:08 07:42 08:38 Temperature 97.3 F Pulse Rate 98 102 Respiratory 16 16 20 Rate Blood Pressure 137/63 (mmHg) O2 Sat by Pulse 94 92 Oximetry Oxygen Devices in Use Now: Nasal Cannula Appearance: obese male sitting up in bed A+O x3 in NAD Eyes: No Scleral Icterus, PERRLA Ears/Nose/Mouth/Throat: NL Teeth, Lips, Gums, Mucous Membranes Moist Neck: NL Appearance and Movements; NL JVP Respiratory: Symmetrical Chest Expansion and Respiratory Effort, Clear to Auscultation Cardiovascular: NL Sounds; No Murmurs; No JVD, RRR, No Edema Abdominal: NL Sounds; No Tenderness; No Distention Extremities: No Edema, No Clubbing, Cyanosis Skin: No Rash or Ulcers, No Nodules or Sclerosis Neurological: Alert and Oriented x 3, NL Sensation, NL Muscle Strength and Tone Lines/Tubes/Other Access: Clean, Dry and Intact Peripheral IV Nutrition: Taking PO's Result Diagrams: 01/30/18 06:34 01/30/18 06:34 Additional Lab and Data: Lab Results 01/29/18 Range/Units 18:25 WBC 15.6 H (3.5-10.8) 10^3/ul RBC 5.27 (4.00-5.40) 10^6/ul Hgb 15.3 (14.0-18.0) g/dl Hct 45 (42-52) % MCV 86 (80-94) fL MCH 29 (27-31) pg MCHC 34 (31-36) g/dl RDW 14 (10.5-15) % Plt Count 219 (150-450) 10^3/ul MPV 8.0 (7.4-10.4) um3 Neut % (Auto) 79.9 (38-83) % Lymph % (Auto) 9.2 L (25-47) % Jennings % (Auto) 9.9 H (0-7) % Eos % (Auto) 0.6 (0-6) % Baso % (Auto) 0.4 (0-2) % Absolute Neuts (auto) 12.5 H (1.5-7.7) 10^3/ul Absolute Lymphs (auto) 1.4 (1.0-4.8) 10^3/ul Absolute Monos (auto) 1.5 H (0-0.8) 10^3/ul Absolute Eos (auto) 0.1 (0-0.6) 10^3/ul Absolute Basos (auto) 0.1 (0-0.2) 10^3/ul Absolute Nucleated RBC 0 10^3/ul Nucleated RBC % 0.1 Microbiology and Other Data: Microbiology 01/30/18 05:42 Group A Streptococcus Rapid Screen - Final Throat Specimen received for Rapid Strep A Molecular testing Assess/Plan/Problems-Billing Assessment: Mr. Raya is a 52 yo male with a PMH of asthma/COPD who c/o cough , sore throat, and generalized weakness and malaise with fever for 3 days who presented to the ER on 01/29 admitted to the hospitalist service for sepsis secondary to pharyngitis. - Patient Problems (1) Sepsis Comment: - Resolving. Mild sepsis on admission. Continues to mildy tachy but much improvement. Continue IVFs. Lactic negative. (2) Pharyngitis Comment: - CT neck showing no acute process - suspect viral. negative rapid strep. Test for Influenza. - supportive treatment - gargle with warm salt water and chlorahexadine - continue prednisone (3) Acute renal failure Comment: resolved with IVFs (4) COPD with asthma Comment: - stable. Mild exacerbation. requiring 2L NC. No wheezing noted on exam. - continue azithro/ceftriaxone - DC IV steroids - started prednisone 40 mg po daily x5 days (5) Hepatic lesion Comment: - hepatic lesion noted on CT abdomen on admission - approx 5 cm - thept was ordered an U/S to further investigate - radiology called noting the pt had an MRI in 2012 showing the lesion measuring 5 cm - suspecting hemangioma. No need for further US at this time. On exam pt has no tenderness (6) Full code status (7) DVT prophylaxis Comment: HSQ Status and Disposition: OBV. Home when medically stable
[2018-01-30] MEDS ORDERED: Phenol 1.4% Spray* 177 ML BTL MT PRN (09:36)
[2018-01-30] MEDS: Gabapentin CAP(*) 300 MG PO SCH ×2 (10:34→13:23)
[2018-01-30] MEDS: Chlorhexidine MOUTHWASH 0.12%* 15 ML UDC SWISH SPIT SCH ×4 (11:28→22:41)
[2018-01-30] MEDS ORDERED: Albuterol/Ipratropium NEB.SOL* Albuterol 2.5 MG/Ipratropium 0.5 MG 3 ML INH SCH (13:00)
[2018-01-30] MEDS ORDERED: Albuterol 2.5 MG/3 ML NEB.SOL* (0.083%) INH PRN (13:49)
[2018-01-30] MEDS ORDERED: Gabapentin CAP(*) 300 MG PO SCH (21:00)
[2018-01-30] MEDS: Acetaminop/Codeine 30 MG TAB* 1 TAB (300 MG/30 MG) PO PRN (21:17)
[2018-01-31] MEDS ORDERED: cefTRIAXone(*) 1 GM in NS 0.9% 50 ML* 50 ML IVPB SCH (01:30)
[2018-01-31] MEDS ORDERED: Azithromycin IV(*) 500 MG in NS 0.9% 250 ML* 250 ML IVPB SCH (01:45)
[2018-01-31] MEDS: Morphine INJ* 2 MG/ML 1 ML SYRINGE (TWO MG - NEW SYRINGE VERSION) IV PRN (02:36)
[2018-01-31] MEDS: Chlorhexidine MOUTHWASH 0.12%* 15 ML UDC SWISH SPIT SCH ×4 (02:49→14:12)
[2018-01-31 06:08] LABS: ABS Basophils 0 10^3/ul (0-0.2); ABS Eosinophils 0 10^3/ul (0-0.6); ABS Lymphocytes 1.3 10^3/ul (1.0-4.8); ABS Monocytes 1.2 10^3/ul (0-0.8); ABS Neutrophils 13.4 10^3/ul (1.5-7.7); ABS Nucleated RBC 0 10^3/ul; Eosinophil % 0 % (0-6); Hematocrit 37 % (42-52); Hemoglobin 12.7 g/dl (14.0-18.0); Lymphocyte % 8.1 % (25-47); Mean Corpuscular HGB Conc 34 g/dl (31-36); Mean Corpuscular Hemoglobin 29 pg (27-31); Mean Corpuscular Volume 86 fL (80-94); Mean Platelet Volume 7.9 um3 (7.4-10.4); Nucleated Red Blood Cells % 0; Platelet Count 212 10^3/ul (150-450); Red Blood Count 4.32 10^6/ul (4.00-5.40); Red Cell Distribution Width 14 % (10.5-15); White Blood Count 15.9 10^3/ul (3.5-10.8)
[2018-01-31 06:30] LABS: EGFR Non-African American 93.9 (>60)
[2018-01-31] MEDS: Albuterol/Ipratropium NEB.SOL* Albuterol 2.5 MG/Ipratropium 0.5 MG 3 ML INH SCH (07:12)
[2018-01-31] MEDS: Mometasone/Formoter 100/5 MDI INH SCH (07:12)
[2018-01-31] MEDS: Heparin VIAL(*) 5000 UNITS/ML VIAL (FIVE THOUSAND) SUBCUT SCH ×2 (07:17→14:12)
[2018-01-31] MEDS: Omeprazole CAP* 20 MG PO SCH (07:17)
[2018-01-31] MEDS: ARIPiprazole TAB* 5 MG PO SCH (08:11)
[2018-01-31] MEDS: Acetaminop/Codeine 30 MG TAB* 1 TAB (300 MG/30 MG) PO PRN (08:12)
[2018-01-31] MEDS: Gabapentin CAP(*) 300 MG PO SCH ×2 (08:12→14:12)
[2018-01-31] MEDS: FLUoxetine CAP* 20 MG PO SCH (08:12)
[2018-01-31] MEDS: Docusate CAP* 100 MG PO SCH (08:13)
[2018-01-31] MEDS: celeCOXIB CAP* 200 MG PO SCH (08:13)
[2018-01-31] MEDS: hydrOXYzine HCL TAB* 25 MG PO SCH (08:13)
[2018-01-31] MEDS: NS 0.9% 1000 ML* 1,000 ML IV SCH (08:53)
[2018-01-31] MEDS ORDERED: predniSONE TAB* 20 MG PO SCH (09:00)
[2018-01-31 13:23] VITALS: BP 139/83
--- NOTE | 2018-01-31 21:52 | DS ---
CC: Dr. Leslie Jordan * DISCHARGE SUMMARY: DATE OF ADMISSION: 01/29/18. DATE OF DISCHARGE: 01/31/18. PRIMARY CARE PROVIDER: Dr. Leslie Jordan. ATTENDING FOR THIS ADMISSION: Dr. Susan Yen. MY ATTENDING FOR TODAY: Dr. Heather Ellison.* (DICTATED BY SARITHA MCKEON NP) HOSPITAL COURSE: This is a 52-year-old male patient with a history of asthma, COPD, and psychiatric/behavioral illness, who presented to the Urgent Care with a complaint of cough, sore throat, and generalized weakness, subjective fevers at home x3 days. The patient was referred from the [facility] to the emergency department for evaluation. The patient in the ED was shown to have a pharyngitis and was also borderline for sepsis. The patient had some mild tachycardia; however, his blood pressure was stable. He had no fever at admission. His lactic acid was negative. The patient received IV fluids and antibiotics in the ED. He was continued on azithromycin and ceftriaxone. CAT scan of the neck was negative for a peritonsillar abscess. The patient remained afebrile over the last 24 hours. His only complaints were pain in the right upper extremity, which is his baseline. He has radicular pain for which he takes gabapentin. This morning when I saw the patient, he was not complaining of any fever, fatigue or chills. His sore throat had improved. He denied any chest pain. No shortness of breath. No abdominal pain. No nausea. No vomiting and no further constitutional complaints. The patient did express his wish to be discharged to home to which I was agreeable as the patient seemed greatly improved from his initial admission. REVIEW OF SYSTEMS: As above. PHYSICAL EXAMINATION: Blood pressure 139/83, respiratory rate 17, heart rate 79 , O2 saturation 94% on room air with a temperature of 97.7. HEENT: The patient is atraumatic, normocephalic. PERRLA with nonicteric sclerae. Oral mucosa is moist. Throat shows some mild erythema. No pus and no tonsillar stones noted. Neck is supple and nontender. No JVD noted. No carotid bruit auscultated. Cardiovascular: S1, S2 present. Rate and rhythm are irregular with no murmurs, gallops or rubs noted. The lungs are clear at the apices bilaterally, diminished at the bases with no appreciable wheezing, rhonchi or rales noted. Abdomen is soft, nontender, nondistended. Moderately obese. Positive bowel sounds in all 4 quadrants. No organomegaly noted. was deferred. Musculoskeletal: There is no clubbing, no cyanosis, no edema. He has 2+ distal pulses palpable, full range of motion, and steady gait. Neurologic: He is grossly intact with no focal deficits. Psychiatric: He is cooperative and appropriate. LABORATORY DATA: WBC is 15.9, RBC is 4.32, hemoglobin 12.7, hematocrit 37, platelets 212. Sodium 142, potassium 3.8, chloride 113, CO2 of 22, BUN 17, creatinine 0.85, glucose 121, lactic acid 1.7, calcium 8.5, CRP admission was 88.63 down to 52.81 today. Albumin 4.3, globulin 3.3. Urinalysis showed 1+ rbc 's and negative for any nitrites, negative for glucose, and negative for bacteria. Influenza A and B were both negative. INR is 1.02. IMAGING: CAT scan of the abdomen and pelvis showed left hepatic lesion incompletely characterized to recommend dedicated liver MRI or CT. No other acute intraabdominal findings. CT of the neck showed no acute findings specifically no peritonsillar abscess. DISCHARGE DIAGNOSES: 1. Acute pharyngitis likely viral and also with no abscess. However, the patient did seem to be responding well to antibiotic therapy. His strep was negative as was his rapid influenza. 2. Throat pain secondary to acute pharyngitis likely viral. 3. Sepsis. However, I do not feel that the patient actually met sepsis criteria. He was tachycardic, however, showed no end-organ dysfunction and did not appear toxic, although he did have fluid resuscitation and antibiotic therapy. 4. Chronic obstructive pulmonary disease. He appears that he was having a mild exacerbation for which he was continued on his nebulizer medications and placed on azithromycin. 5. For his abdominal tenderness, again the patient had a CT of the abdomen, which showed no acute findings. He does have hepatic possibly a cyst, which can be followed as an outpatient. DISCHARGE MEDICATIONS: 1. Flexeril 10 mg p.o. b.i.d. as needed. 2. Tylenol with Codeine 3 times a day as needed. 3. Aripiprazole 10 mg p.o. daily. 4. Hydroxyzine 50 mg 3 times a day as needed. 5. Celebrex 200 mg 2 times a day. 6. Protonix 40 mg daily. 7. Dulera 100/5 three puffs inhaled 2 times a day. 8. Gabapentin 300 mg 3 times a day with 600 mg at bedtime. 9. Prozac 40 mg daily. 10. Prednisone 40 mg daily for 4 more days. 11. Chloraseptic [place] 1 spray q.4 hours as needed. 12. Azithromycin 500 mg daily for 4 more days. 13. Tylenol 650 mg q.4 hours as needed for pain. DIET: The patient should have a soft diet as tolerated. ACTIVITY: As tolerated. DISPOSITION: The patient will be discharged to home in the care of family. The patient states his understanding of his discharge medications and followups. The patient will follow up with his primary care provider, Dr. Rachel Romero early next week. SARITHA MCKEON NP [id number]/[facility] #: [id number] ERI
== END 2018-01-31 15:25 | disposition home or self-care (01) | DRG 720 ==
LOC: ED 17:28 → MED 23:26 → INTOOBSV 01-30 14:54 → OBSVTOIN 01-30 14:54 → UNDODISIN 01-31 15:25
PROVIDERS: ADMIT Internal Medicine; ATTEND Hospitalist
DX: A41.9 Sepsis, unspecified organism (principal); J44.1 Chronic obstructive pulmonary disease with (acute) exacerbation; J02.9 Acute pharyngitis, unspecified; G89.29 Other chronic pain; M54.5 Low back pain; G47.30 Sleep apnea, unspecified; K21.9 Gastro-esophageal reflux disease without esophagitis; M47.9 Spondylosis, unspecified; M17.0 Bilateral primary osteoarthritis of knee; M19.012 Primary osteoarthritis, left shoulder; M19.011 Primary osteoarthritis, right shoulder; M19.032 Primary osteoarthritis, left wrist; M19.031 Primary osteoarthritis, right wrist; R94.4 Abnormal results of kidney function studies; F41.9 Anxiety disorder, unspecified; F32.9 Major depressive disorder, single episode, unspecified; R10.819 Abdominal tenderness, unspecified site; K76.89 Other specified diseases of liver; E66.9 Obesity, unspecified; Z90.81 Acquired absence of spleen; Z88.0 Allergy status to penicillin; Z87.891 Personal history of nicotine dependence; Z80.1 Family history of malignant neoplasm of trachea, bronchus and lung; Z82.5 Family history of asthma and other chronic lower respiratory diseases; Z56.0 Unemployment, unspecified; Z68.34 Body mass index [BMI] 34.0-34.9, adult
CPT/HCPCS: 36415; 70490; 74177; 80048; 80053; 81003; 81015; 83605; 83690; 84484; 85025; 85610; 85730; 86140; 87040; 87086; 87651; 93005; 94640; 99285; A9270-GY; G0378; J0456; J0696; J0744; J1644; J2270; J2920; J2930; J3370; J3490; J7512; Q9967

== ENCOUNTER 2018-10-25 16:32 | Emergency (ER) | payer OTHER ==
[2018-10-25 16:57] VITALS: BP 111/84
--- NOTE | 2018-10-25 17:21 | UC ---
Abdominal Pain Male HPI - HPI Summary HPI Summary: 53 yo male presents with diarrhea. He tells me that over the last week he has had loose stools, but over the last 2-3 days has had watery diarrhea. He tells me that he is having 15-20 episodes of watery diarrhea for the last 2-3 days. Mild abdominal cramping just prior to BM that is relieved by having a BM. He has not noticed any blood in his stool. He is eating and drinking, but states he does have a decreased appetite. Denies fever, chills, SOB, chest pain, n/v. No recent travel or anbx use. - History of Current Complaint Chief Complaint: UCGI Stated Complaint: ABDOMINAL COMPLAINT Time Seen by Provider: 10/25/18 17:20 Hx Obtained From: Patient Onset/Duration: Sudden Onset Severity Currently: None Pain Intensity: 0 - Allergies/Home Medications Allergies/Adverse Reactions: Allergies Allergy/AdvReac Type Severity Reaction Status Date / Time Penicillins Allergy Anaphylatic Verified 10/25/18 16:58 Shock PMH/Surg Hx/FS Hx/Imm Hx GI/ History: Gastroesophageal Reflux Psychological History: Anxiety, Depression, Bipolar Disorder - Surgical History Surgical History: Yes Surgery Procedure, Year, and Place: 07/2014 left shoulder x2 ; 12/2013 rt shoulder ; spleen removed in 1977; back fx x 2 - Family History Known Family History: Positive: None, Respiratory Disease - COPD, Other - CA Negative: Cardiac Disease, Hypertension, Diabetes - Social History Alcohol Use: None Alcohol Amount: last 2009 Substance Use Type: None Substance Use Comment - Amount & Last Used: tylenol with codeine Smoking Status (MU): Former Smoker Type: Cigarettes Amount Used/How Often: 1 1/2 PPD X 20 YEARS Length of Time of Smoking/Using Tobacco: 25 YEARS Have You Smoked in the Last Year: No When Did the Patient Quit Smoking/Using Tobacco: 2012 - Immunization History Most Recent Influenza Vaccination: NONE Most Recent Tetanus Shot: less then 5 yrs Most Recent Pneumonia Vaccination: NONE Review of Systems All Other Systems Reviewed And Are Negative: Yes Constitutional: Positive: Negative Skin: Positive: Negative Respiratory: Positive: Negative Cardiovascular: Positive: Negative Gastrointestinal: Positive: Diarrhea Genitourinary: Positive: Negative Neurovascular: Positive: Negative Neurological: Positive: Negative Psychological: Positive: Negative Physical Exam - Summary Physical Exam Summary: GENERAL: NAD. WDWN. No pain distress. SKIN: No rashes, sores, lesions, or open wounds. NECK: Supple. Nontender. No lymphadenopathy. CHEST: CTAB. No r/r/w. No accessory muscle use. Breathing comfortably and in no distress. CV: RRR. Without m/r/g. Pulses intact. Cap refill <2seconds ABDOMEN: Soft. NTTP. No distention or guarding. No CVA tenderness. Bowel sounds present NEURO: Alert. PSYCH: Age appropriate behavior. Triage Information Reviewed: Yes Vital Signs: Initial Vital Signs Temp 98.1 F 10/25/18 16:51 Pulse 108 10/25/18 16:51 Resp 16 10/25/18 16:51 BP 111/84 10/25/18 16:51 Pulse Ox 98 10/25/18 16:51 Vital Signs Reviewed: Yes Abd Pain Male Course/Dx - Course Course Of Treatment: Pt is well appearing and exam is unremarkable. Will start him with flagyl and have him complete stool cultures and guide treatment based on results. - Differential Dx/Clinical Impression Provider Diagnosis: Diarrhea Discharge - Sign-Out/Discharge Documenting (check all that apply): Patient Departure All imaging exams completed and their final reports reviewed: No Studies - Discharge Plan Condition: Stable Disposition: HOME Prescriptions: metroNIDAZOLE [Flagyl 500 MG TAB] 500 mg PO TID #30 tab Patient Education Materials: Acute Diarrhea (ED) Referrals: Leslie Jordan MD [Primary Care Provider] - Additional Instructions: If you develop a fever, shortness of breath, chest pain, new or worsening symptoms - please call your PCP or go to the ED immediately. Please complete the stool culture as soon as possible - Billing Disposition and Condition Condition: STABLE Disposition: Home
== END 2018-10-25 17:42 | disposition home or self-care (01) ==
LOC: UCEAST 16:32
DX: R19.7 Diarrhea, unspecified (principal); R10.9 Unspecified abdominal pain; Z88.0 Allergy status to penicillin; Z87.891 Personal history of nicotine dependence
CPT/HCPCS: 99212; G0463

== ENCOUNTER 2019-03-07 09:52 | Emergency (ER) | payer OTHER ==
--- NOTE | 2019-03-07 10:11 | ED ---
Throat Pain/Nasal Congestion - HPI Summary HPI Summary: The patient is a 53 y/o M presenting to [facility] with a chief complaint of sensation of foreign body and dysphagia onset yesterday around 1400. He reports that he had been eating chicken, and has since felt food stuck there. He c/o dysphagia as he is unable to swallow liquids, and he last attempted to drink water this morning without success. He also states he had nausea with some vomiting, although it was difficult to completely excrete the emesis due to the foreign body sensation. Currently, his symptoms are rated 7/10 in severity. There is no relief of the sensation with coughing. He has had an episode of this before about a year ago. PMHx: anemia, asthma, COPD, sleep apnea, chronic back pain, splenectomy. Former smoker, no EtOH, no substance use. Medications reviewed. Allergies noted. - History of Current Complaint Chief Complaint: EDForeignBodyEsophag Time Seen by Provider: 03/07/19 10:04 Hx Obtained From: Patient Onset/Duration: Sudden Onset, Lasting Hours - since 1400 yesterday, Still Present Severity: Moderate Associated Signs And Symptoms: Positive: Dysphagia, FB Sensation Cough: None - Allergies/Home Medications Allergies/Adverse Reactions: Allergies Allergy/AdvReac Type Severity Reaction Status Date / Time Penicillins Allergy Anaphylatic Verified 03/07/19 10:05 Shock PMH/Surg Hx/FS Hx/Imm Hx Endocrine/Hematology History: Reports: Hx Anemia - A CHILD, spleen removed 1977 Denies: Hx Diabetes, Hx Systemic Lupus Erythematosus, Hx Thyroid Disease Cardiovascular History: Denies: Hx Congestive Heart Failure, Hx Hypercholesterolemia, Hx Hypertension , Hx Pacemaker/ICD, Other Cardiovascular Problems/Disorders Respiratory History: Reports: Hx Asthma, Hx Chronic Obstructive Pulmonary Disease (COPD), Hx Sleep Apnea, Other Respiratory Problems/Disorders - FOUND SPOT ON LUNG 2 YRS AGO, unsure what GI History: Reports: Hx Gastroesophageal Reflux Disease, Hx Hiatal Hernia - STATES POSSIBLY Denies: Other GI Disorders History: Denies: Hx Dialysis, Hx Renal Disease, Other Problems/Disorders Musculoskeletal History: Reports: Hx Arthritis - back and shoulders, knees, wrists, Other Musculoskeletal History - RIGHT SHOULDER Denies: Hx Rheumatoid Arthritis Sensory History: Denies: Hx Contacts or Glasses, Hx Hearing Aid Opthamlomology History: Denies: Hx Contacts or Glasses Neurological History: Reports: Hx Nerve Disease - r/t carpal tunnel Psychiatric History: Reports: Hx Anxiety - on meds, Hx Depression - on meds Denies: Hx Panic Disorder - Cancer History Hx Chemotherapy: No - Surgical History Surgical History: Yes Surgery Procedure, Year, and Place: 07/2014 left shoulder x2 ; 12/2013 rt shoulder ; spleen removed in 1977; back fx x 2 Hx Anesthesia Reactions: No Infectious Disease History: No Infectious Disease History: Denies: Hx Clostridium Difficile, Hx Hepatitis, Hx Human Immunodeficiency Virus (HIV), Hx of Known/Suspected MRSA, Hx Shingles, Hx Tuberculosis, Hx Known/ Suspected VRE, Hx Known/Suspected VRSA, History Other Infectious Disease, Traveled Outside the [place] in Last 30 Days - Family History Known Family History: Positive: Respiratory Disease - COPD, Other - CA Negative: Cardiac Disease, Hypertension, Diabetes - Social History Alcohol Use: None Alcohol Amount: last 2009 Substance Use Type: Reports: None Substance Use Comment - Amount & Last Used: tylenol with codeine Hx Tobacco Use: No Smoking Status (MU): Former Smoker Type: Cigarettes Amount Used/How Often: 1 1/2 PPD X 20 YEARS Length of Time of Smoking/Using Tobacco: 25 YEARS Have You Smoked in the Last Year: No Review of Systems Positive: Other - foreign body stuck in esophagus, inability to swallow liquids Positive: Vomiting, Nausea All Other Systems Reviewed And Are Negative: Yes Physical Exam - Summary Physical Exam Summary: VITAL SIGNS: Reviewed. GENERAL: Patient is a well-developed and nourished male who is lying comfortable in the stretcher. Patient is not in any acute respiratory distress. HEAD AND FACE: No signs of trauma. No ecchymosis, hematomas or skull depressions. No sinus tenderness. EYES: PERRLA, EOMI x 2, No injected conjunctiva, no nystagmus. EARS: Hearing grossly intact. Ear canals and tympanic membranes are within normal limits. MOUTH: Oropharynx within normal limits. NECK: Supple, trachea is midline, no adenopathy, no JVD, no carotid bruit, no c- spine tenderness, neck with full ROM. CHEST: Symmetric, no tenderness at palpation. LUNGS: Clear to auscultation bilaterally. No wheezing or crackles. CVS: Regular rate and rhythm, S1 and S2 present, no murmurs or gallops appreciated. ABDOMEN: Soft, non-tender. No signs of distention. No rebound, no guarding, and no masses palpated. Bowel sounds are normal. EXTREMITIES: FROM in all major joints, no edema, no cyanosis or clubbing. NEURO: Alert and oriented x 3. No acute neurological deficits. Speech is normal and follows commands. SKIN: Dry and warm. Triage Information Reviewed: Yes Vital Signs On Initial Exam: Initial Vitals Temp Pulse Resp BP Pulse Ox 98.3 F 114 18 156/117 95 03/07/19 09:54 03/07/19 09:54 03/07/19 09:54 03/07/19 09:54 03/07/19 09:54 Vital Signs Reviewed: Yes Procedures - Sedation Patient Received Moderate/Deep Sedation with Procedure: Yes Are You The Provider Who Administered The Sedation: Metzger of Provider Whom Sedated Patient: [facility] - Vital Signs Vital Signs Temp Pulse Resp BP Pulse Ox 03/07/19 09:54 98.3 F 114 18 156/117 95 - Laboratory Lab Statement: Any lab studies that have been ordered have been reviewed, and results considered in the medical decision making process. - Radiology Chest X-Ray Radiology Interpretation Completed By: Radiologist Summary of Radiographic Findings: Impression: No evidence for active cardiopulmonary disease. ED physician has reviewed this report. Re-Evaluation - Re-Evaluation First Eval Re-Evaluation Time: 13:30 Change: Improved Comment: Patient has improved. He is asleep, and vitals are stable. EENT Course/Dx - Course Assessment/Plan: Patient is a 53 y/o M [facility] chief complaint of esophageal foreign body sensation since 1400 after eating chicken with accompaying symptoms of dysphagia of liquids, nausea, and vomiting without complete excretion of emesis secondary to foreign body sensation. Patient was given Glucagon. However, patient still feeling the FB in the esophagus. CXR impression: No acute pathology. Discussed the case with Dr. England and will consult for the patient. She performed and endoscopy and she reports FB when down and she reports ulcerations and strictures. She recommends Omeprazole 20 mg BID and f/u with Dr. Talbot. Patient is A+O x3. Able to tolerate fluids w /o N/V. Recommended soft diet. I discussed all the findings and test results with the patient. Patient was instructed to return to the emergency room immediately if any of the symptoms return worsens. Plan of care was discussed with the patient and understands and agrees. All questions were answered at patient satisfaction. There were no further complaints or concerns. Lung exam before discharge: CTA B/L. Good air exchange. No wheezing or crackles heard. CVS : S1 and S2 present. No murmurs appreciated. Patient is alert and oriented x 3. Patient is hemodynamically stable. Patient will be discharged home with follow up PCP in the next 2-3 days. - Diagnoses Provider Diagnoses: Esophageal foreign body - Provider Notifications Discussed Care Of Patient With: Bri England - gastroenterology Time Discussed With Above Provider: 10:18 Instructed by Provider To: MD Will See In ED - Dr. England will come evaluate the patient in the ED. At 1318, Dr. England reports that the chicken has already fallen out of the patient's esophagus; he has an ulceration in the esophagus that needs to be dilated but not while it is ulcerated, so he needs a one month course of 20mg Omeprazole BID, but he will be seen in the clinic. She recommends soft food diet. Discharge ED - Sign-Out/Discharge Documenting (check all that apply): Patient Departure - Patient will be discharged home. - Discharge Plan Condition: Stable Disposition: HOME Patient Education Materials: Soft Diet (ED), Esophageal Foreign Body (ED), Moderate Sedation (ED) Referrals: Leslie Jordan MD [Primary Care Provider] - Freddy Talbot MD [Medical Doctor] - 1 Day Additional Instructions: Please take Omeprazole 20 mg twice a day and stick to a soft diet. Follow up with Dr. Talbot tomorrow. Return to the emergency department for any new or worsening symptoms. - Billing Disposition and Condition Condition: STABLE Disposition: Home - Attestation Statements Document Initiated by Scribe: Yes Documenting Scribe: Jodie Sanchez Provider For Whom Min is Documenting (Include Credential): Dr. Dillan Wilkes MD Scribe Attestation: Jodie Alston scribed for Dr. Dillan Wilkes MD on 03/07/19 at 1843. Scribe Documentation Reviewed: Yes Provider Attestation: The documentation as recorded by the Jodie gamino accurately reflects the service I personally performed and the decisions made by me, Dr. Dillan Wilkes MD Status of Scribe Document: Viewed
[2019-03-07] MEDS ORDERED: Glucagon* 1 MG VIAL IV ONE (10:20)
--- OUTSIDE RECORDS SUMMARY | 2019-03-07 10:55 | XMS REPORT | Continuity of Care Document ---
:1965 External Reference #:[id number] Author Name Jasmyne Beyer MD (transmitted by agent of provider Missy Epps) Address [address], [address] [place] [address] Care Team Providers Name Role Phone Leslie Ricketts MD - Family Medicine Care Team Information Pool Technician [phone] Problems Active Problems Provider Date Asthma without status asthmaticus Jasmyne Beyer MD Onset: 06/12/2016 Gastroesophageal reflux disease Jasmyne Beyer MD Onset: 06/12/2016 Disturbance in sleep behavior Jasmyne Beyer MD Onset: 06/12/2016 Obesity Jasmyne Beyer MD Onset: 06/12/2016 Obstructive sleep apnea syndrome Jasmyne Beyer MD Onset: 07/15/2016 Myalgia Susan Yen M.D. Onset: 01/29/2018 Malaise and fatigue Susan Yen M.D. Onset: 01/29/2018 Fever Susan Yen M.D. Onset: 01/29/2018 Acute pharyngitis Susan Yen M.D. Onset: 01/29/2018 Chronic obstructive lung disease Susan Yen M.D. Onset: 01/29/2018 Sepsis, unspecified organism Eileen Briggs NP Onset: 01/30/2018 Acute renal failure syndrome Eileen Briggs NP Onset: 01/30/2018 Chronic obstructive pulmonary disease Sally Olivera NP Onset: 2017 with (acute) exacerbation Liver disease, unspecified Sally Olivera NP Onset: 01/31/2018 Social History Type Date Description Comments Sex Unknown Tobacco Use Start: 07/31/85 Former Cigarette End: 08/31/12 Smoker 1 1/2 Packs Daily Smoking Status Reviewed: 03/01/19 Former Cigarette Smoker 1 1/2 Packs Daily ETOH Use Denies alcohol use Tobacco Use Start: Unknown Patient is a former End: Unknown smoker Recreational Drug Use Denies Drug Use Exercise Type/Frequency Walks daily Exercise Type/Frequency Exercises regularly As tolerated. Walks about 100 yards/ day.Document: 02/27/17 - Pulmonology Follow Up Allergies, Adverse Reactions, Alerts Active Allergies Reaction Severity Comments Date Penicillin 06/17/2013 Medications Active Medications SIG Qnty Indications Ordering Date Provider Airduo Respiclick 1 unit inhalation 1units Jasmyne Beyer, 09/10/2018 113/14 twice daily 113-14mcg/Act Aerosol Symbicort inhale two puffs 10.200gm J45.909 Jasmyne Beyer, 08/27/2018 by mouth twice a 80-4.5mcg/Act day Aerosol J44.9 Prozac 2 by mouth daily Unknown 06/04/2016 Tablet Hydroxyzine HCL 2 by mouth as Unknown 06/04/2016 25mg needed Pantoprazole 1 by mouth every day Unknown 06/04/[address] Aripiprazole 1 by mouth daily Unknown 06/04/2016 15mg Tablets Proair HFA 2 puffs by mouth Unknown 06/04/2016 108(90Base) mcg/Act Aerosol every 4 hours as needed ( pt states he is not taking ) Celebrex 1 by mouth 2x daily Unknown 200mg Gabapentin 4 caps by mouth Unknown 600 every day Cyclobenzaprine HCL take 1 tablet by Unknown 10mg Tablets mouth three times a day if needed for pain Hydroxyzine HCL Yomi Smith MD 25mg Tablets Celecoxib Unknown 200mg Capsules Tylenol With Codeine #3 2 tablet by mouth Unknown 300-30mg Tablets every 8 hours as needed cough Medications Administered in Office Medication SIG Qnty Indications Ordering Provider Date Depomedrol 40MG Alycia Medrano M.D. 09/23/2018 Injection Depomedrol 40MG Alycia Medrano M.D. 09/23/2018 Injection Depomedrol 40MG Alycia Medrano M.D. 09/23/2018 Injection Depomedrol 40MG Corie Bitting, [facility] 05/13/2018 Injection Records Fee Alycia Medrano M.D. 05/08/2018 Injection Depomedrol 40MG Corie Bitting, [facility] 03/04/2018 Injection Depomedrol 40MG Corie Bitting, [facility] 03/04/2018 Injection Depomedrol 40MG Alycia Medrano M.D. 10/01/2017 Injection Depomedrol 40MG Alycia Medrano M.D. 10/01/2017 Injection Depomedrol 40MG Alycia Medrano M.D. 10/01/2017 Injection Depomedrol 40MG Alycia Medrano M.D. 05/14/2017 Injection Depomedrol 40MG Alycia Medrano M.D. 05/14/2017 Injection Depomedrol 40MG Alycia Medrano M.D. 05/14/2017 Injection Depomedrol 40MG Alycia Medrano M.D. 02/13/2017 Injection Depomedrol 40MG Alycia Medrano M.D. 12/18/2016 Injection Depomedrol 40MG Alycia Medrano M.D. 12/18/2016 Injection Depomedrol 40MG Alycia Medrano M.D. 08/15/2016 Injection Depomedrol 40MG Alycia Medrano M.D. 08/15/2016 Injection Depomedrol 40MG Alycia Medrano M.D. 04/10/2016 Injection Depomedrol 40MG Alycia Medrano M.D. 04/10/2016 Injection Depomedrol 40MG Alycia Medrano M.D. 08/16/2015 Injection Depomedrol 80MG Alycia Medrano M.D. 06/17/2013 Injection Depomedrol 80MG Alycia Medrano M.D. 02/25/2013 Injection Immunizations Description No Information Available Vital Signs Date Vital Result Comment 03/01/2019 11:19am Height 68 inches 5'8" Weight 242.00 lb Heart Rate 100 /min BP Systolic Sitting 150 mmHg BP Diastolic Sitting 100 mmHg O2 % BldC Oximetry 95 % BMI (Body Mass Index) 36.8 kg/m2 09/23/2018 8:19am Height 68 inches 5'8" Weight 240.00 lb Heart Rate 101 /min Body Temperature 97.0 F O2 % BldC Oximetry 92 % BMI (Body Mass Index) 36.5 kg/m2 Results Description No Information Available Procedures Date Code Description Status 09/23/2018 Inject/Drain Joint/Bursa Major W/O US Completed 09/23/2018 Inject Tendon Sheath Or Ligament Aponeurosis Eg Plantar Completed Fascia Medical Devices Description No Information Available Encounters Type Date Location Provider Dx Diagnosis Office Visit 03/01/2019 Pulmonology And Jasmyne Beyer J44.9 Chronic obstructive 11:30a [facility] Of pulmonary disease, Machinist Job Setter unspecified J45.909 Unspecified asthma, uncomplicated G47.33 Obstructive sleep apnea (adult) (pediatric) Assessments Date Code Description Provider 03/01/2019 J44.9 Chronic obstructive pulmonary disease, Jasmyne Beyer MD unspecified 03/01/2019 J45.909 Unspecified asthma, uncomplicated Jasmyne Beyer MD 03/01/2019 G47.33 Obstructive sleep apnea (adult) (pediatric) Jasmyne Beyer MD 09/23/2018 M65.4 Radial styloid tenosynovitis [de Quervain] Alycia Medrano M.D. 09/23/2018 M19.011 Primary osteoarthritis, right shoulder Alycia Medrano M.D. 09/23/2018 M19.012 Primary osteoarthritis, left shoulder Alycia Medrano M.D. 09/23/2018 S76.301A Unspecified injury of muscle, fascia and Alycia Medrano M.D. tendon of the poste Plan of Treatment 03/01/2019 - Jasmyne Beyer MDJ44.9 Chronic obstructive pulmonary disease, unspecifiedNew Orders:PFTW/Spirometry Vol Pre/Post Bronchdilat Dlco Complete, Ordered: 03/01/19Follow up:6 months DIANAJ45.909 Unspecified asthma, fddhnftlhrxhsC06.33 Obstructive sleep apnea (adult) (pediatric) Functional Status Description No Information Available Mental Status Description No Information Available Referrals Description No Information Available
[2019-03-07] MEDS ORDERED: Midazolam* 1 MG/ML 10 ML VIAL (10 MG) ONE (12:54)
[2019-03-07] MEDS ORDERED: fentaNYL* 50 MCG/ML 2 ML VIAL (100 MCG VIAL) ONE (12:54)
--- NOTE | 2019-03-07 13:49 | CONS ---
GASTROENTEROLOGY CONSULT REPORT: DATE OF CONSULT: 03/07/19 REASON FOR CONSULT: Food impaction. REQUESTING PROVIDER: Dr. Wilkes, ED. HISTORY OF PRESENT ILLNESS: Mr. Raya is a 53-year-old gentleman with a history of COPD, asthma, osteoarthritis, and anxiety/depression, who presents to the ED with food impaction. GI records are limited as our office in room dining server is down at the time of this documentation. The patient reports that he has had at least 4 food impactions in the past due to esophageal stricture(s) He reports being seen by Dr Talbot around a year ago. He was in usual state of health until yesterday between noon and 2 p.m. when he was eating chicken. He felt like the chicken got stuck. He has been unable to swallow liquids or eat foods since this time. He has been tolerating his secretions. He was having some nausea with vomiting yesterday. Denies any shortness of breath or chest pain. Reports that this presentation is similar to an episode of impaction last year. Of note, patient's MAR lists Pantoprazole 40 mg daily, although patient is unaware of his medication names. He mentions having been prescribed Flovent in the past, and he thinks this was for the GI and pulmonary systems. He is not certain if he has been diagnosed with eosinophilic esophagitis in the past. GI was consulted. The patient was given glucagon 1 mg IV without effect. PAST MEDICAL HISTORY: 1. COPD and asthma. 2. GERD. 3. Osteoarthritis. 4. Anxiety and depression. MEDICATIONS: 1. Abilify 15 mg daily. 2. Celebrex 200 mg twice daily. 3. Cyclobenzaprine 10 mg t.i.d. 4. Fluoxetine 40 mg daily. 5. Gabapentin 600 mg 3 times daily and at bedtime. 6. Hydroxyzine 50 mg daily. 7. Pantoprazole 40 mg daily. 8. Tylenol with Codeine as needed. ALLERGIES: PENICILLIN. FAMILY HISTORY: Noncontributory. SOCIAL HISTORY: No significant alcohol use recently. Former smoker. PHYSICAL EXAM: Vital Signs: Heart rate 90s to 100s, blood pressure 145/112, 92% to 94% on room air. General: Chronically ill-appearing gentleman. No acute distress. Lying in bed. Quite sleepy during the interview and provides minimal information. Tolerating secretions without issue. HEENT: Mucous membranes mildly dry. Cardiovascular: Regular rate and rhythm. Pulmonary: Breathing comfortably. Minimal wheezing. Abdomen: Soft, nontender, nondistended. Extremities: No significant edema. DIAGNOSTIC STUDIES/LAB DATA: Labs: None. Imaging: Chest x-ray was negative for any active cardiopulmonary disease. IMPRESSION AND RECOMMENDATIONS: Mr. Raya is a 53-year-old gentleman with a history of chronic obstructive pulmonary disease and asthma, anxiety, depression , and recurrent food impactions, who presents for food impaction. The patient reported onset of symptoms after eating chicken yesterday afternoon. It has been approximately 24 hours since this time. The patient is tolerating secretions suggestive of partial esophageal obstruction. Will plan for EGD in the ER. Thank you very much for this consult. [id number]/[facility] #: [id number] ERI
--- NOTE | 2019-03-07 15:36 | PRO ---
CC: Leslie Jordan MD; Dr. Talbot * DATE OF PROCEDURE: 03/07/19 - EMERGENCY DEPT PROCEDURE: EGD with biopsy. PRIMARY PROVIDER: Leslie Jordan MD PRIMARY PULMONOLOGY TECHNICIAN: Dr. Talbot. INDICATION: The patient presents to the ED with food impaction. This is apparently a recurrent issue with the last episode occurring roughly a year ago , per patient. The patient believes he was told to use Flovent in the past, but that this was not covered by insurance. Denies any GI symptoms prior to the impaction episode. He believes he had chicken that got stuck in his esophagus sometime between 12 and 2 p.m. yesterday. The patient was given one dose of glucagon in the ER without apparent success. Of note, the GI clinic windows server architect note is not working, so I do not have access to prior office visits or endoscopic reports. MEDICATIONS GIVEN: Midazolam 3 mg IV, Fentanyl 50 mcg IV. DESCRIPTION OF PROCEDURE: Full disclosure of risks was reviewed with the patient as detailed on the consent form. The patient was placed in the left lateral decubitus position and monitored with continuous pulse oximetry, capnography, interval blood pressure monitoring, and direct observation. A bite -block was placed between the patient's teeth. Adult gastroscope was then inserted into the patient's mouth and advanced down the esophagus, into the stomach, and into the distal duodenum. Findings and interventions are described below. FINDINGS: Esophagus was a tubular structure. There was no food bolus seen in the esophagus. There was mild linear furrowing in the mid-esophagus. There were a few distal esophageal rings with evidence of irritation and small erosions along the ring related to the prolonged food impaction. Scope was easily advanced into the stomach. The stomach was examined in the forward and retroflexed views. There was a moderate amount of food debris in the stomach with subsequent limited views of portions of gastric body. Visualized areas of gastric mucosa appeared unremarkable. Scope was advanced into duodenum to at least the third portion. Duodenal mucosa was normal in appearance. Scope was then withdrawn back into the esophagus. Biopsies obtained from the mid and distal esophagus given suspicion for eosinophilic esophagitis. Scope was then withdrawn from the patient. The patient tolerated the procedure well and was recovered in the GI recovery area. IMPRESSION: 1. Complete upper endoscopy to distal duodenum. 2. No food bolus seen on exam. This likely passed after the glucagon or with sedation and insufflation of the esophagus. 3. Several esophageal rings seen in the distal esophagus above the GE junction. Evidence of irritation and erosions at the rings due to the food impaction. Dilation not performed due to these findings. FOLLOWUP: 1. Await pathology. 2. I will defer to Dr. Talbot if he would like to bring the patient back in for a clinic visit or proceed directly to outpatient EGD for dilation. 3. Recommend omeprazole 20 mg twice daily. The patient was unsure if he has been taking a PPI, so I would recommend that he switch to this regimen for now. 4. Recommend soft diet for the next few days as he is likely to have some discomfort related to the esophageal irritation. Thank you very much for this consult. [id number]/[facility] #: [id number] ERI
[2019-03-07 17:35] VITALS: BP 118/82
== END 2019-03-07 17:59 | disposition home or self-care (01) ==
LOC: ED 09:52
DX: T18.128A Food in esophagus causing other injury, initial encounter (principal); X58.XXXA Exposure to other specified factors, initial encounter; Y92.9 Unspecified place or not applicable; J44.9 Chronic obstructive pulmonary disease, unspecified; F41.9 Anxiety disorder, unspecified; F32.9 Major depressive disorder, single episode, unspecified; Z88.0 Allergy status to penicillin; Z87.891 Personal history of nicotine dependence
CPT/HCPCS: 71046; 88305; 99156; 99157; 99285; J1610; J2250; J3010

== ENCOUNTER 2019-05-11 15:34 | Emergency (ER) | payer OTHER ==
--- OUTSIDE RECORDS SUMMARY | 2019-05-11 15:40 | XMS REPORT ---
:1965 Author Organization [facility] Care Team Providers Name Role Phone Unavailable Unavailable Unavailable Problems This patient has no known problems. Allergies, Adverse Reactions, Alerts Allergy Allergy Status Severity Reaction(s) Onset Inactive Treating Comments Name Type Date Date Clinician Unknown None Active Unknown None Unknown No Known Allergies For This Patient Medications Ordered Filled Start Stop Current Ordering Indication Dosage Frequency Signature Comments Components Medication Medication Date Date Medication? Clinician (SIG) Name Name No Known No Known No None None None Medications Medications For This For This Patient Patient Procedures This patient has no known procedures. Results This patient has no known results.
--- OUTSIDE RECORDS SUMMARY | 2019-05-11 15:40 | XMS REPORT ---
:1965 Author Organization [facility] Care Team Providers Name Role Phone KARLOWILLIE Primary Care Physician Unavailable Allergies, Adverse Reactions, Alerts Allergy Code CodeSystem Reaction Severity Criticality Status Start Substance Date Moderate Medications Medication Medication Medication Start Stop Route Dose Status Fill Code CodeSystem Date Date Instructions cholecalciferol 663425 RxNorm oral 5,000 active for 30 (vitamin D3) 3-26 unit day(s) capsule pantoprazole 782675 RxNorm 0 oral 40 mg active for 30 7-23 tablet,d day(s) elayed release (DR/EC) acetaminophen-c 149986 RxNorm oral 300-30 active for 30 odeine 3-22 mg day(s) tablet Prozac 492189 RxNorm 0 oral 40 mg 2 active Take 2 8-13 capsule capsule once once a a day for 30 day day(s) gabapentin 583722 RxNorm 2018-0 oral 600 mg active for 30 2-26 tablet day(s) Prozac 401531 RxNorm 0 2019- oral 40 mg completed for 30 2-21 08-13 capsule day(s) celecoxib 127371 RxNorm 2018-0 oral 200 mg active for 30 3-22 capsule day(s) albuterol 0871897 RxNorm inhl 90 active for 15 sulfate mcg/actu day(s) ation HFA aerosol inhaler aripiprazole 612788 RxNorm 2018-0 oral 15 mg active for 30 6-20 tablet day(s) hydroxyzine HCl 289141 RxNorm 2018-0 oral 25 mg 1 active Take 1 tablet 5-20 tablet twice a day twice a as needed for day 30 day(s) aripiprazole 405609 RxNorm 0 2019- oral 15 mg completed for 30 1-02 06-12 tablet day(s) cyclobenzaprine 623985 RxNorm 2019-0 oral 10 mg active for 30 2-04 tablet day(s) Problems Problem Name Code CodeSystem Alternate Alternate Start End Status Narrative Code CodeSystem Date Date Alcohol 33419440 SNOMED-CT 2019- Active dependence, 4-05 uncomplicated Nicotine 22892001 SNOMED-CT 2019-0 Active dependence, 4-05 unspecified, uncomplicated 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 Mixed 08404352 SNOMED-CT 2019-0 Active obsessional 3-22 thoughts and acts Relevant diagnostic tests/laboratory data Narrative No Information Procedures Procedure Code CodeSystem Target Date of Status Service Device Device Device Name Site Procedure Delivery Code Name UID Location Psychotherap [id number] SNOMED-CT () 2018-09-07 complete Mental y, 45 04 d Health- minutes with [place] patient [address], [id number] [id number] Office [place] [id number] SNOMED-CT () 2018-09-15 complete Mental other 7 d Health- outpatient [place] visit for [address], [place], established [id number] patient, [id number] which requires at least 2 of these 3 garcia components: An expanded problem focused history; An expanded problem focused examination; Medical decision making of low SNOMED-CT () 2018-09-21 complete Mental d Health- [address], [id number] [phone] Psychotherap [id number] SNOMED-CT () 2018-10-05 complete Mental y, 45 04 d Health- minutes with [place] patient [address], [id number] [id number] Psychotherap [id number] SNOMED-CT () 2018-10-19 complete Mental y, 45 04 d Health- minutes with [place] patient [address], [id number] [phone] Psychotherap [id number] SNOMED-CT () 2018-11-09 complete Mental y, 45 04 d Health- minutes with [place] patient [address], [id number] [id number] Psychotherap [id number] SNOMED-CT () 2018-11-23 complete Mental y, 45 04 d Health- minutes with [place] patient [address], [id number] [id number] SNOMED-CT () 2018-12-28 complete Mental d Health- [place], [id number] [phone] Office [place] [id number] SNOMED-CT () 2019-01-12 complete Mental other 7 d Health- outpatient [place] visit for [address], [facility], established [id number] patient, [id number] which requires at least 2 of these 3 garcia components: An expanded problem focused history; An expanded problem focused examination; Medical decision making of [facility] Psychotherap [id number] SNOMED-CT () 2019-01-25 complete Mental y, 45 04 d Health- minutes with [place] patient [address], [id number] [id number] Psychotherap [id number] SNOMED-CT () 2019-02-15 complete Mental y, 45 04 d Health- minutes with [place] patient [address], [id number] [phone] Psychotherap [id number] SNOMED-CT () 2019-02-22 complete Mental y, 45 04 d Health- minutes with [place] patient [address], [id number] [phone] Psychotherap [id number] SNOMED-CT () 2019-03-22 complete Mental y, 45 04 d Health- minutes with [place] patient [address], [id number] [phone] SNOMED-CT () 2019-04-05 complete Mental d Health- [address], [id number] [id number] Office or [id number] SNOMED-CT () 2019-04-13 complete Mental other 6 d Health- outpatient [place] visit for [address], [facility], established [id number] patient, [phone] which requires at least 2 of these 3 garcia components: A problem focused history; A problem focused examination; Straightforw daniel medical decision making. Counselin Encounters/Encounter Diagnoses Encounter Encounter Diagnosis Diagnosis Name Diagnosis Date of Service Name Code Code CodeSystem Diagnosis Delivery Location [id number] Mixed SNOMED-CT [facility] , , acts , Vital Signs No Information Social History Element Description Description Start End Code CodeSystem AdditionalInfo Date Date SexAssignedAtBirth Male 1966-0 M AdministrativeGender 06-08 Hospital Discharge Instructions Reason For Referral Medical Equipment FDA Assessments
--- OUTSIDE RECORDS SUMMARY | 2019-05-11 15:40 | XMS REPORT ---
:1965 Author Organization [facility] Care Team Providers Name Role Phone Unavailable [...]
--- OUTSIDE RECORDS SUMMARY | 2019-05-11 15:40 | XMS REPORT ---
:1965 Author Organization [facility] Care Team Providers Name Role Phone Unavailable [...]
--- OUTSIDE RECORDS SUMMARY | 2019-05-11 15:40 | XMS REPORT ---
:1965 Author Organization [facility] Care Team Providers Name Role Phone Unavailable [...]
--- OUTSIDE RECORDS SUMMARY | 2019-05-11 15:40 | XMS REPORT ---
:1965 Author Organization [facility] Care Team Providers Name Role Phone WILLIE DIETRICH Primary Care Physician Unavailable Allergies, Adverse Reactions, Alerts Allergy Code CodeSystem Reaction Severity Criticality Status Start Substance Date Moderate Medications Medication Medication Medication Start Stop Route Dose Status Fill Code CodeSystem Date Date Instructions aripiprazole 917934 RxNorm 2019-0 oral 15 mg active for 30 6-20 tablet day(s) cholecalciferol 113840 RxNorm 2018-0 oral 5,000 active for 30 (vitamin D3) 3-26 unit day(s) capsule Prozac 375638 RxNorm 2019- oral 40 mg completed for 30 2-21 08-13 capsule day(s) gabapentin 928582 RxNorm 2018-0 oral 600 mg active for 30 2-26 tablet day(s) cyclobenzaprine 057987 RxNorm 2018-0 oral 10 mg active for 30 2-04 tablet day(s) aripiprazole 620344 RxNorm 0 2019- oral 15 mg completed for 30 1-02 06-12 tablet day(s) celecoxib 521003 RxNorm 2019-0 oral 200 mg active for 30 3-22 capsule day(s) acetaminophen-c 492872 RxNorm 2018-0 oral 300-30 active for 30 odeine 3-22 mg day(s) tablet hydroxyzine HCl 183231 RxNorm 2019-0 oral 25 mg 1 active Take 1 tablet 5-20 tablet twice a day twice a as needed for day 30 day(s) albuterol 3972356 RxNorm inhl 90 active for 15 sulfate mcg/actu day(s) ation HFA aerosol inhaler Prozac 128271 RxNorm 2019-0 oral 40 mg 2 active Take 2 8-13 capsule capsule once once a a day for 30 day day(s) pantoprazole 503519 RxNorm 2018-0 oral 40 mg active for 30 7-23 tablet,d day(s) elayed release (DR/EC) Problems Problem Name Code CodeSystem Alternate Alternate Start End Status Narrative Code CodeSystem Date Date Mixed 54047659 SNOMED-CT 2018- Active obsessional 3-22 thoughts and acts Nicotine 72929652 SNOMED-CT 2019- Active dependence, 4-05 unspecified, uncomplicated Alcohol 76799450 SNOMED-CT 2018- Active dependence, 4-05 uncomplicated Mixed 85813990 SNOMED-CT Active obsessional 3-22 thoughts and acts Relevant diagnostic tests/laboratory data Narrative No Information Procedures Procedure Code CodeSystem Target Date of Status Service Device Device Device Name Site Procedure Delivery Code Name UID Location Psychotherap [id number] SNOMED-CT () 2019-01-25 complete Mental y, 45 04 d Health- minutes with [place], [id number] [phone] Psychotherap [id number] SNOMED-CT () 2019-02-15 complete Mental y, 45 04 d Health- minutes with [address], [id number] [phone] Psychotherap [id number] SNOMED-CT () 2019-02-22 complete Mental y, 45 04 d Health- minutes with [address], [id number] [phone] Psychotherap 609053 SNOMED-CT () 2019-03-22 complete Mental y, 45 04 d Health- minutes with [address], [id number] [phone] Psychotherap [id number] SNOMED-CT () 2018-09-07 complete Mental y, 45 04 d Health- minutes with [address], [id number] [phone] Psychotherap [id number] SNOMED-CT () 2018-10-05 complete Mental y, 45 04 d Health- minutes with [address], [id number] [phone] Psychotherap [id number] SNOMED-CT () 2018-10-19 complete Mental y, 45 04 d Health- minutes with [address], [id number] [phone] Psychotherap [id number] SNOMED-CT () 2018-11-09 complete Mental y, 45 04 d Health- minutes with [place] patient [address], [id number] [phone] Psychotherap [id number] SNOMED-CT () 2018-11-23 complete Mental y, 45 04 d Health- minutes with [place] patient [address], [id number] [phone] Office or [id number] SNOMED-CT () 2018-09-15 complete Mental other 7 d Health- outpatient [place] visit for [address], [facility], established [id number] patient, [phone] which requires at least 2 of these 3 garcia components: An expanded problem focused history; An expanded problem focused examination; Medical decision making of [facility] Office or [id number] SNOMED-CT () 2019-01-12 complete Mental other 7 d Health- outpatient [place] visit for [address], established [id number] patient, [id number] which requires at least 2 of these 3 garcia components: An expanded problem focused history; An expanded problem focused examination; Medical decision making of low SNOMED-CT () 2018-09-21 complete Mental d Health[address], [id number] [phone] SNOMED-CT () 2018-12-28 complete Mental d Health[address], [id number] [phone] SNOMED-CT () 2019-04-05 complete Mental d Health[address], [id number] [phone] Encounters/Encounter Diagnoses Encounter Encounter Diagnosis Diagnosis Name Diagnosis Date of Service Name Code Code CodeSystem Diagnosis Delivery Location [id number] Mixed SNOMED-CT [facility] , , acts , Vital Signs No Information Social History Element Description Description Start End Code CodeSystem AdditionalInfo Date Date SexAssignedAtBirth Male 1966-0 M AdministrativeGender 07 Hospital Discharge Instructions Reason For Referral Medical Equipment FDA Assessments
--- NOTE | 2019-05-11 15:41 | UC ---
Respiratory Complaint HPI - HPI Summary HPI Summary: 53 yo male presents with cough. He tells me that he has a history of COPD, but has stopped smoking. Over the last 1-2 weeks has had an intermittently productive cough and tightness in his "lungs" when he breathes. He has been using his prn albuterol inhaler, which helps for a short time. He uses a CPAP at night. He mentions that he has noticed on 2 or 3 occasions some thin streaks of blood in his sputum. Also has sinus congestion, sore throat, and post nasal drip. Denies fever, chills, SOB, chest pain, n/v. His BP is elevated today. He mentions that this is an ongoing issue with his PCP and they are monitoring it. He currently denies headache, dizziness, SOB, chest pain, numbness, tingling, nausea. - History of Current Complaint Stated Complaint: COUGH Time Seen by Provider: 05/11/19 15:40 Hx Obtained From: Patient Onset/Duration: Gradual Onset Severity Initially: Moderate Severity Currently: Moderate Pain Intensity: 5 Pain Scale Used: 0-10 Numeric - Allergies/Home Medications Allergies/Adverse Reactions: Allergies Allergy/AdvReac Type Severity Reaction Status Date / Time Penicillins Allergy Anaphylatic Verified 05/11/19 15:49 Shock PMH/Surg Hx/FS Hx/Imm Hx Respiratory History: COPD Psychological History: Anxiety, Depression - Surgical History Surgical History: Yes Surgery Procedure, Year, and Place: 07/2014 left shoulder x2 ; 12/2013 rt shoulder ; spleen removed in 1977; back fx x 2 - Family History Known Family History: Positive: Respiratory Disease - COPD, Other - [place] Negative: Cardiac Disease, Hypertension, Diabetes - Social History Lives: With Family Alcohol Use: None Alcohol Amount: last 2009 Substance Use Type: None Substance Use Comment - Amount & Last Used: tylenol with codeine Smoking Status (MU): Former Smoker Type: Cigarettes Amount Used/How Often: 1 1/2 PPD X 20 YEARS Length of Time of Smoking/Using Tobacco: 25 YEARS Have You Smoked in the Last Year: No When Did the Patient Quit Smoking/Using Tobacco: 2012 - Immunization History Most Recent Influenza Vaccination: NONE Most Recent Tetanus Shot: less then 5 yrs Most Recent Pneumonia Vaccination: NONE Review of Systems All Other Systems Reviewed And Are Negative: No Constitutional: Positive: Negative Skin: Positive: Negative Eyes: Positive: Negative ENT: Positive: Sore Throat, Nasal Discharge Respiratory: Positive: Cough Cardiovascular: Positive: Negative Gastrointestinal: Positive: Negative Neurological: Positive: Negative Psychological: Positive: Negative Physical Exam - Summary Physical Exam Summary: GENERAL: NAD. WDWN. No pain distress. SKIN: No rashes, sores, lesions, or open wounds. HEENT: Head: AT/NC Eyes: Conjunctiva clear without inflammation or discharge. Ears: Hearing grossly normal. TMs intact, no bulging, erythema, or edema. Nose: Nasal mucosa pink and moist. NTTP maxillary and frontal sinus. Throat: Posterior oropharynx with mild erythema. No exudates or tonsillar enlargement. Uvula midline. NECK: Supple. Nontender. No lymphadenopathy. CHEST: Mild wheezing throughout. Decreased breath sounds throughout. No accessory muscle use. Breathing comfortably and in no distress. CV: RRR. Pulses intact. Cap refill <2seconds NEURO: Alert. PSYCH: Age appropriate behavior. Triage Information Reviewed: Yes Vital Signs: Vital Signs: Temp Pulse Resp BP Pulse Ox 98.4 F 78 16 162/103 99 05/11/19 15:42 05/11/19 15:42 05/11/19 15:42 05/11/19 15:42 05/11/19 15:42 Vital Signs Reviewed: Yes Diagnostics - Radiology CXR Radiology Interpretation Completed By: Radiologist Summary of Radiographic Findings: IMPRESSION: NO ACTIVE CARDIOPULMONARY DISEASE. Respiratory Course/Dx - Course Course Of Treatment: CXR as above. In the clinic pt was given a duoneb treatment and states feels much better and can take a deep breath. Suspect bronchitis/copd exacerbation. - Differential Dx/Diagnosis Provider Diagnosis: COPD exacerbation Discharge ED - Sign-Out/Discharge Documenting (check all that apply): Patient Departure All imaging exams completed and their final reports reviewed: Yes - Discharge Plan Condition: Stable Disposition: HOME Prescriptions: DOXYcycline CAP(*) [DOXYcycline 100MG CAP(*)] 100 mg PO BID #14 cap predniSONE TAB* [Deltasone 20 MG TAB*] 40 mg PO DAILY #10 tab Patient Education Materials: COPD (Chronic Obstructive Pulmonary Disease) (ED) Referrals: Leslie Jordan MD [Primary Care Provider] - 3 Days Additional Instructions: If you develop a fever, shortness of breath, chest pain, new or worsening symptoms - please call your PCP or go to the ED immediately. Your blood pressure was high at todays visit. Please see your primary provider within 4 weeks for recheck and re-evaluation. - Billing Disposition and Condition Condition: STABLE Disposition: Home - Attestation Statements Provider Attestation: Per institutional requirements, I have reviewed the chart, however, I was not consulted specifically or made aware of this patient by the midlevel provider. I did not personally evaluate, interact with , or disposition this patie
--- OUTSIDE RECORDS SUMMARY | 2019-05-11 15:41 | XMS REPORT ---
:1965 Author Organization [facility] Care Team Providers Name Role Phone Unavailable [...]
--- OUTSIDE RECORDS SUMMARY | 2019-05-11 15:41 | XMS REPORT ---
:1965 Author Organization [facility] Care Team Providers Name Role Phone Unavailable [...]
--- OUTSIDE RECORDS SUMMARY | 2019-05-11 15:41 | XMS REPORT ---
:1965 Author Organization [facility] Care Team Providers Name Role Phone Unavailable [...]
[2019-05-11 15:57] VITALS: BP 168/102
[2019-05-11] MEDS ORDERED: Albuterol/Ipratropium NEB.SOL* Albuterol 2.5 MG/Ipratropium 0.5 MG 3 ML INH ONE (15:58)
== END 2019-05-11 16:35 | disposition home or self-care (01) ==
LOC: UCEAST 15:34
DX: J44.1 Chronic obstructive pulmonary disease with (acute) exacerbation (principal); J02.9 Acute pharyngitis, unspecified; J34.89 Other specified disorders of nose and nasal sinuses; Z88.0 Allergy status to penicillin; Z87.891 Personal history of nicotine dependence
CPT/HCPCS: 71046; 87651; 99212; A9270-GY; G0463